=== PATIENT | female | born 1990 | race Caucasian/White ===

== ENCOUNTER 2017-02-13 21:05 | Observation (INO) | payer OTHER ==
[2017-02-13] MEDS ORDERED: SODIUM CHLORIDE 0.9% 1,000 ML IV STA (21:31)
--- NOTE | 2017-02-13 21:50 | ED ---
Abdominal Pain HPI <Fadi Nelson - Last Filed: 02/13/17 23:56> - General Source: patient, RN notes reviewed Mode of arrival: ambulatory Limitations: no limitations <Cedrick Castano - Last Filed: 02/13/17 23:58> - General Chief Complaint: Abdominal Pain Stated Complaint: Back pain Time Seen by Provider: 02/13/17 21:16 - History of Present Illness Initial Comments: 27-year-old female presents emergency Department chief complaint right lower quadrant, right flank pain. Patient states has been present last 3-4 days. Patient states that she occasionally gets some shooting pain from her lower abdomen to her back. Patient states she has a history of ovarian cysts and kidney stones. Patient denies any nausea vomiting diarrhea constipation. She states that she does have some dysuria and frequency. She denies any vaginal bleeding or vaginal discharge. Denies any chance . Patient states that she's had no prior abdominal surgeries. (Cedrick Castano) - Related Data Home Medications Medication Instructions Recorded Confirmed Cyclobenzaprine [Flexeril] 10 mg PO HS PRN 01/20/14 02/13/17 HYDROcodone/APAP 7.5-325MG [[place] 1 tab PO TID 01/20/14 02/13/17 7.5-325] Ibuprofen [Motrin] 800 mg PO TID PRN 01/20/14 02/13/17 metFORMIN HCL 1,000 mg PO BID 04/14/16 02/13/17 Albuterol Inhaler [Ventolin Hfa 2 puff INHALATION RT-Q6H PRN 07/18/16 02/13/17 Inhaler] Beclomethasone Dipropionate [Qvar 2 puff INHALATION RT-BID 07/18/16 02/13/17 80 mcg] Allergies Allergy/AdvReac Type Severity Reaction Status Date / Time doxycycline Allergy Rash/Hives Verified 02/13/17 21:15 Review of Systems ROS Other: All systems not noted in ROS Statement are negative. <Fadi Nelson - Last Filed: 02/13/17 23:56> ROS Other: All systems not noted in ROS Statement are negative. <Cedrick Castano - Last Filed: 02/13/17 23:58> ROS Statement: Those systems with pertinent positive or pertinent negative responses have been documented in the HPI. Past Medical History Past Medical History: Diabetes Mellitus, Hyperlipidemia Additional Past Medical History / Comment(s): back pain. headaches History of Any Multi-Drug Resistant Organisms: None Reported Past Surgical History: Tonsillectomy Additional Past Surgical History / Comment(s): laparoscopy x2 Past Psychological History: No Psychological Hx Reported Smoking Status: Current every day smoker Past Alcohol Use History: None Reported Past Drug Use History: Marijuana <Cedrick Castano Des - Last Filed: 02/13/17 23:58> General Exam Limitations: no limitations General appearance: alert, in no apparent distress Respiratory exam: Present: normal lung sounds bilaterally. Absent: respiratory distress, wheezes, rales, rhonchi, stridor Cardiovascular Exam: Present: regular rate, normal rhythm, normal heart sounds. Absent: systolic murmur, diastolic murmur, rubs, gallop, clicks GI/Abdominal exam: Present: soft, tenderness (Mild right-sided abdominal tenderness), normal bowel sounds. Absent: distended, guarding, rebound, rigid Back exam: Absent: CVA tenderness (R), CVA tenderness (L) Skin exam: Present: warm, dry, intact, normal color. Absent: rash <Cedrick Castano - Last Filed: 02/13/17 23:58> Medical Decision Making - Lab Data Result diagrams: 02/13/17 21:45 02/13/17 21:45 <Fadi Nelson - Last Filed: 02/13/17 23:56> - Lab Data Result diagrams: 02/13/17 21:45 02/13/17 21:45 <Cedrick Castano - Last Filed: 02/13/17 23:58> - Medical Decision Making Martin decision-making. Patient's white count 14.8. She has had lower abdominal discomfort more the right lower quadrant for 3 days and getting worse. Decreased appetite. Examination finds tenderness with palpation to the right lower quadrant mild rebound or referred pain. A CT showed the appendix mildly prominent normal localized inflammatory response. The radiologist reports is early appendicitis cannot be excluded. Is also trace of nonspecific pelvic free fluid. I discussed the case with on-call general surgeon Dr. Pabon patient be admitted her service kept nothing by mouth hydrated, pain medication as needed repeat CBC in the morning. Dr. Nelson (Fadi Nelson) - Lab Data Lab Results 02/13/17 02/13/17 02/13/17 Range/Units 21:33 21:33 21:45 WBC (3.8-10.6) k/uL RBC (3.80-5.40) m/uL Hgb (11.4-16.0) gm/dL Hct (34.0-46.0) % MCV (80.0-100.0) fL MCH (25.0-35.0) pg MCHC (31.0-37.0) g/dL RDW (11.5-15.5) % Plt Count (150-450) k/uL Neutrophils % % Lymphocytes % % Monocytes % % Eosinophils % % Basophils % % Neutrophils # (1.3-7.7) k/uL Lymphocytes # (1.0-4.8) k/uL Monocytes # (0-1.0) k/uL Eosinophils # (0-0.7) k/uL Basophils # (0-0.2) k/uL Sodium 140 (137-145) mmol/L Potassium 4.0 (3.5-5.1) mmol/L Chloride 104 (98-107) mmol/L Carbon Dioxide 24 (22-30) mmol/L Anion Gap 12 mmol/L BUN 10 (7-17) mg/dL Creatinine 0.82 (0.52-1.04) mg/dL Est GFR (MDRD) Af Amer >60 (>60 ml/min/1.73 sqM) Est GFR (MDRD) Non-Af >60 (>60 ml/min/1.73 sqM) Glucose 112 H (74-99) mg/dL Calcium 9.5 (8.4-10.2) mg/dL Total Bilirubin 0.3 (0.2-1.3) mg/dL AST 14 (14-36) U/L ALT 13 (9-52) U/L Alkaline Phosphatase 91 (38-126) U/L Total Protein 7.0 (6.3-8.2) g/dL Albumin 4.1 (3.5-5.0) g/dL Amylase <30 L (30-110) U/L Lipase 121 (23-300) U/L Urine Color Yellow Urine Appearance Cloudy H (Clear) Urine pH 6.0 (5.0-8.0) Ur Specific [place] 1.020 (1.001-1.035) Urine Protein Negative (Negative) Urine Glucose (UA) Negative (Negative) Urine Ketones Negative (Negative) Urine Blood Negative (Negative) Urine Nitrite Negative (Negative) Urine Bilirubin Negative (Negative) Urine Urobilinogen 2.0 (<2.0) mg/dL Ur Leukocyte Esterase Negative (Negative) Urine RBC 1 (0-5) /hpf Urine WBC 4 (0-5) /hpf Ur Squamous Epith Cells 3 (0-4) /hpf Urine Mucus Rare H (None) /hpf Urine HCG, Qual Not Detected (Not Detectd) 02/13/17 Range/Units 21:45 WBC 14.8 H (3.8-10.6) k/uL RBC 4.81 (3.80-5.40) m/uL Hgb 13.7 (11.4-16.0) gm/dL Hct 42.2 (34.0-46.0) % MCV 87.9 (80.0-100.0) fL MCH 28.5 (25.0-35.0) pg MCHC 32.4 (31.0-37.0) g/dL RDW 14.1 (11.5-15.5) % Plt Count 268 (150-450) k/uL Neutrophils % 63 % Lymphocytes % 30 % Monocytes % 3 % Eosinophils % 1 % Basophils % 1 % Neutrophils # 9.3 H (1.3-7.7) k/uL Lymphocytes # 4.4 (1.0-4.8) k/uL Monocytes # 0.4 (0-1.0) k/uL Eosinophils # 0.1 (0-0.7) k/uL Basophils # 0.1 (0-0.2) k/uL Sodium (137-145) mmol/L Potassium (3.5-5.1) mmol/L Chloride (98-107) mmol/L Carbon Dioxide (22-30) mmol/L Anion Gap mmol/L BUN (7-17) mg/dL Creatinine (0.52-1.04) mg/dL Est GFR (MDRD) Af Amer (>60 ml/min/1.73 sqM) Est GFR (MDRD) Non-Af (>60 ml/min/1.73 sqM) Glucose (74-99) mg/dL Calcium (8.4-10.2) mg/dL Total Bilirubin (0.2-1.3) mg/dL AST (14-36) U/L ALT (9-52) U/L Alkaline Phosphatase (38-126) U/L Total Protein (6.3-8.2) g/dL Albumin (3.5-5.0) g/dL Amylase (30-110) U/L Lipase (23-300) U/L Urine Color Urine Appearance (Clear) Urine pH (5.0-8.0) Ur Specific [place] (1.001-1.035) Urine Protein (Negative) Urine Glucose (UA) (Negative) Urine Ketones (Negative) Urine Blood (Negative) Urine Nitrite (Negative) Urine Bilirubin (Negative) Urine Urobilinogen (<2.0) mg/dL Ur Leukocyte Esterase (Negative) Urine RBC (0-5) /hpf Urine WBC (0-5) /hpf Ur Squamous Epith Cells (0-4) /hpf Urine Mucus (None) /hpf Urine HCG, Qual (Not Detectd) Disposition <Fadi Nelson - Last Filed: 02/13/17 23:56> Time of Disposition: 23:58 <Cedrick Castano - Last Filed: 02/13/17 23:58> Clinical Impression: Acute appendicitis Disposition: ADMITTED IP TO THIS HOSP Condition: Stable Referrals: Carol Vargas MD [Primary Care Provider] - 1-2 days
[2017-02-13 22:09] LABS: Basophils # (A) 0.1 k/uL (0-0.2); Basophils % (A) 1 %; CH 29.2; CHCM 33.4; Eosinophils # (A) 0.1 k/uL (0-0.7); Eosinophils % (A) 1 %; HCT 42.2 % (34.0-46.0); HGB 13.7 gm/dL (11.4-16.0); Luc # (Auto) 0.36; Luc % (Auto) 2; Lymphocytes # (A) 4.4 k/uL (1.0-4.8); Lymphocytes % (A) 30 %; MCH 28.5 pg (25.0-35.0); MCHC 32.4 g/dL (31.0-37.0); MCV 87.9 fL (80.0-100.0); Mean Platelet Volume 7.5; Monocytes # (A) 0.4 k/uL (0-1.0); Monocytes % (A) 3 %; Neutrophils # (A) 9.3 k/uL (1.3-7.7); Neutrophils % (A) 63 %; RBC 4.81 m/uL (3.80-5.40); RDW 14.1 % (11.5-15.5); WBC 14.8 k/uL (3.8-10.6); WBC (Perox) 15.09
[2017-02-13 22:12] LABS: Appearance,Urine Cloudy (Clear); Bilirubin,Urine Negative (Negative); Glucose,Urine (UA) Negative (Negative); Ketones,Urine Negative (Negative); Leukocyte Esterase,Urine Negative (Negative); Mucus,Urine Rare /hpf; Nitrite,Urine Negative (Negative); Particle Count 5148; Protein,Urine Negative (Negative); RBC,Urine 1 /hpf (0-5); Squamous Epithelial Cell,Urine 3 /hpf (0-4); UA Billing (MACRO vs. MICRO) MICRO; WBC,Urine 4 /hpf (0-5)
[2017-02-13 22:30] LABS: ALT 13 U/L (9-52); AST 14 U/L (14-36); Alkaline Phosphatase 91 U/L (38-126); Amylase <30 U/L (30-110); Anion Gap 12 mmol/L; Blood Urea Nitrogen 10 mg/dL (7-17); Calcium 9.5 mg/dL (8.4-10.2); Carbon Dioxide 24 mmol/L (22-30); Chloride 104 mmol/L (98-107); Glucose 112 mg/dL (74-99); Non-African American GFR(MDRD) >60 (>60 ml/min/1.73 sqM); Sodium 140 mmol/L (137-145); Total Bilirubin 0.3 mg/dL (0.2-1.3)
--- NOTE | 2017-02-13 22:44 | US ---
EXAM: US Pelvis, Transvaginal CLINICAL HISTORY: pain TECHNIQUE: Real-time transvaginal pelvic ultrasound (complete) with image documentation. Transvaginal imaging was used for better evaluation of the endometrium and adnexa. COMPARISON: CT 04/14/2016 FINDINGS: Uterus/cervix: The uterus is normal in size and measures 6.7 x 4.0 x 4. 1 cm. The endometrium is normal in caliber measuring 8 mm. Right ovary: The right ovary is normal in size with normal vascular flow and measures 2.7 x 3.8 x 1.8 cm. Avascular 9 mm hyperechoic focus of the right ovary is nonspecific, possibly a resolving/subacute hemorrhagic cyst. Left ovary: The left ovary is unremarkable in size and appearance with normal vascular flow and measures 2.1 x 3.0 x 2.2 cm. Free fluid: No free fluid. Bladder: The bladder is not seen. IMPRESSION: No acute findings.
[2017-02-13] MEDS ORDERED: RX INFO: IV CONTRAST WAS GIVEN 1 EACH MISC MISCELLANE PRN (22:47)
[2017-02-13] MEDS ORDERED: ONDANSETRON 4 MG/2 ML VIAL IVP STA (23:28)
--- NOTE | 2017-02-13 23:28 | CT ---
EXAM: CT Abdomen and Pelvis With Intravenous Contrast CLINICAL HISTORY: Reason: Pain TECHNIQUE: Axial computed tomography images of the abdomen and pelvis with intravenous contrast. CTDI is 0.25, 17.20, 15.21 mGy and DLP is 1300 mGy- cm. This CT exam was performed using one or more of the following dose reduction techniques: automated exposure control, adjustment of the mA and/or kV according to patient size, and/or use of iterative reconstruction technique. COMPARISON: US pelvis 02/13/2017, CT abdomen and pelvis 04/14/2016 FINDINGS: Lower thorax: Small hiatal hernia. ABDOMEN: Liver: Unremarkable. Gallbladder and bile ducts: Unremarkable. No calcified stones. Pancreas: Unremarkable. Spleen: Unremarkable. Adrenals: Unremarkable. Kidneys and ureters: Unremarkable. No solid mass. No hydronephrosis. Stomach and bowel: Unremarkable. Bowel is nondilated. Appendix: The tip of the appendix is mildly prominent measuring 8 mm in diameter. No periappendiceal inflammatory change, however early acute appendicitis is not excluded. PELVIS: Bladder: Unremarkable. Reproductive: Unremarkable as visualized. ABDOMEN and PELVIS: Intraperitoneal space: Trace nonspecific pelvic free fluid. No free or loculated fluid collection. Hepatomegaly. No focal hepatic lesions. Fluid. No free air or loculated fluid collection. Bones/joints: No acute osseous abnormality. Subcentimeter sclerotic focus in the left acetabulum is nonspecific, likely a bone island. Soft tissues: Unremarkable. Vasculature: Unremarkable. No abdominal aortic aneurysm. Lymph nodes: Unremarkable. No enlarged lymph nodes. IMPRESSION: The tip of the appendix is mildly prominent measuring 8 mm in diameter. No periappendiceal inflammatory change, however early acute appendicitis is not excluded. Clinical correlation is advised. Trace nonspecific pelvic free fluid.
[2017-02-13] MEDS ORDERED: NALOXONE 0.4 MG/ML 1 ML VIAL IV PRN (23:56)
[2017-02-13] MEDS ORDERED: HYDROmorphone 1 MG/ML 1 ML SYRINGE IV PRN (23:56)
[2017-02-13] MEDS ORDERED: ONDANSETRON 4 MG/2 ML VIAL IVP PRN (23:56)
[2017-02-14] MEDS: SODIUM CHLORIDE 0.9% 1,000 ML IV SCH ×2 (00:35→08:25)
[2017-02-14 00:39] VITALS: BMI 27.0
--- NOTE | 2017-02-14 06:22 | P.GSHP ---
History of Present Illness H&P Date: 02/14/17 Chief Complaint: Right lower quadrant pain 27 years old female presents with discomfort in the right lower quadrant which has been increasing in severity and she presented to ER last night with severe right lower quadrant pain 10 out of 10. No nausea or vomiting. Known diabetic for last 10 years on metformin. 2 prior abdominal surgeries for ovarian cysts no fever, chills or rigors. Last menstrual period was 12 days ago - Review of Systems Comment: All negative except stated in history of present illness Past Medical History Past Medical History: Diabetes Mellitus, Hyperlipidemia Additional Past Medical History / Comment(s): back pain. headaches History of Any Multi-Drug Resistant Organisms: None Reported Past Surgical History: Tonsillectomy Additional Past Surgical History / Comment(s): laparoscopy x2 Past Psychological History: No Psychological Hx Reported Smoking Status: Current every day smoker Past Alcohol Use History: None Reported Past Drug Use History: Marijuana - Past Family History Father Family Medical History: Cancer, Coronary Artery Disease (CAD), Diabetes Mellitus , Hyperlipidemia Mother Family Medical History: Cancer, Coronary Artery Disease (CAD), Diabetes Mellitus , Hyperlipidemia Medications and Allergies Home Medications Medication Instructions Recorded Confirmed Type Cyclobenzaprine [Flexeril] 10 mg PO HS PRN 01/20/14 02/13/17 History HYDROcodone/APAP 7.5-325MG [[place] 1 tab PO TID 01/20/14 02/13/17 History 7.5-325] Ibuprofen [Motrin] 800 mg PO TID PRN 01/20/14 02/13/17 History metFORMIN HCL 1,000 mg PO BID 04/14/16 02/13/17 History Albuterol Inhaler [Ventolin Hfa 2 puff INHALATION RT-Q6H PRN 07/18/16 02/13/17 History Inhaler] Beclomethasone Dipropionate [Qvar 2 puff INHALATION RT-BID 07/18/16 02/13/17 History 80 mcg] Allergies Allergy/AdvReac Type Severity Reaction Status Date / Time doxycycline Allergy Rash/Hives Verified 02/13/17 21:15 Surgical - Exam Vital Signs Temp Pulse Resp BP Pulse Ox 99.0 F 66 18 107/54 98 02/13/17 21:13 02/13/17 21:13 02/13/17 21:13 02/13/17 21:13 02/13/17 21:13 General: Patient is alert and oriented to time, place and person and cooperative with exam. HEENT: No pallor, no icterus Chest: Bilateral equal breath sounds present. Cardiovascular: Regular rate and rhythm. Abdomen: Right lower quadrant tenderness with localized tenderness Results - Labs 02/13/17 21:45 02/13/17 21:45 Abnormal Lab Results - Last 24 Hours (Table) 02/13/17 02/13/17 02/13/17 Range/Units 21:33 21:45 21:45 WBC 14.8 H (3.8-10.6) k/uL Neutrophils # 9.3 H (1.3-7.7) k/uL Glucose 112 H (74-99) mg/dL Amylase <30 L (30-110) U/L Urine Appearance Cloudy H (Clear) Urine Mucus Rare H (None) /hpf Diabetes panel 02/13/17 Range/Units 21:45 Sodium 140 (137-145) mmol/L Potassium 4.0 (3.5-5.1) mmol/L Chloride 104 (98-107) mmol/L Carbon Dioxide 24 (22-30) mmol/L BUN 10 (7-17) mg/dL Creatinine 0.82 (0.52-1.04) mg/dL Glucose 112 H (74-99) mg/dL Calcium 9.5 (8.4-10.2) mg/dL AST 14 (14-36) U/L ALT 13 (9-52) U/L Alkaline Phosphatase 91 (38-126) U/L Total Protein 7.0 (6.3-8.2) g/dL Albumin 4.1 (3.5-5.0) g/dL Calcium panel 02/13/17 Range/Units 21:45 Calcium 9.5 (8.4-10.2) mg/dL Albumin 4.1 (3.5-5.0) g/dL Pituitary panel 02/13/17 Range/Units 21:45 Sodium 140 (137-145) mmol/L Potassium 4.0 (3.5-5.1) mmol/L Chloride 104 (98-107) mmol/L Carbon Dioxide 24 (22-30) mmol/L BUN 10 (7-17) mg/dL Creatinine 0.82 (0.52-1.04) mg/dL Glucose 112 H (74-99) mg/dL Calcium 9.5 (8.4-10.2) mg/dL Adrenal panel 02/13/17 Range/Units 21:45 Sodium 140 (137-145) mmol/L Potassium 4.0 (3.5-5.1) mmol/L Chloride 104 (98-107) mmol/L Carbon Dioxide 24 (22-30) mmol/L BUN 10 (7-17) mg/dL Creatinine 0.82 (0.52-1.04) mg/dL Glucose 112 H (74-99) mg/dL Calcium 9.5 (8.4-10.2) mg/dL Total Bilirubin 0.3 (0.2-1.3) mg/dL AST 14 (14-36) U/L ALT 13 (9-52) U/L Alkaline Phosphatase 91 (38-126) U/L Total Protein 7.0 (6.3-8.2) g/dL Albumin 4.1 (3.5-5.0) g/dL - Imaging CT scan - abdomen: other (CT scan reviewed- early acute appendicitis) Assessment and Plan (1) Type 2 diabetes mellitus Status: Acute (2) Acute appendicitis Status: Acute Plan: 1. Laparoscopic appendectomy possible open 2. The risks, benefits and potential complications explained- bleeding, infection, possibility of converting to open 3. Unasyn [id number] 4. heparin 5000 Units SQ 5. Bilateral Scds
[2017-02-14 06:51] LABS: CH 28.3; CHCM 32.5; HCT 41.9 % (34.0-46.0); HDW 2.38; HGB 14.2 gm/dL (11.4-16.0); MCH 29.6 pg (25.0-35.0); MCHC 33.8 g/dL (31.0-37.0); MCV 87.6 fL (80.0-100.0); Mean Platelet Volume 6.9; RBC 4.78 m/uL (3.80-5.40); WBC 14.3 k/uL (3.8-10.6); WBC (Perox) 15.21
[2017-02-14 07:14] LABS: Add Differential Manual Differential
[2017-02-14 07:16] LABS: Manual Review Performed; Nucleated Red Blood Cells 0 /100 WBC (0-0); Total Cells Counted 100
[2017-02-14] MEDS: AMPICILLIN-SULBACTAM 3 GM in SODIUM CHLORIDE 0.9% 100 ML IVPB SCH ×2 (08:26→16:09)
[2017-02-14] MEDS: HEPARIN SODIUM,PORCINE 5,000 UNIT/ML 1 ML VIAL SQ SCH ×2 (08:26→16:10)
[2017-02-14] MEDS ORDERED: IV FLUID CONTINUATION 1,000 ML IV ONE (11:35)
[2017-02-14] MEDS ORDERED: SUCCINYLCHOLINE CHLORIDE 100 MG/5 ML SYR IV ONE (12:11)
[2017-02-14] MEDS ORDERED: MIDAZOLAM 2 MG/2 ML VIAL ONE (12:11)
[2017-02-14] MEDS ORDERED: GLYCOPYRROLATE 0.2 MG/ML 2 ML VIAL ONE (12:11)
[2017-02-14] MEDS ORDERED: LIDOCAINE 1% INJ 10MG/ML (20 ML MDV) ONE (12:11)
[2017-02-14] MEDS ORDERED: ROCURONIUM BROMIDE 10 MG/ML 10 ML VIAL IV ONE (12:11)
[2017-02-14] MEDS ORDERED: HYDROmorphone (PF) 1 MG/ML ONE (12:11)
[2017-02-14] MEDS ORDERED: fentaNYL (PF) 50 MCG/ML 2 ML AMP ONE (12:11)
[2017-02-14] MEDS ORDERED: ALBUTEROL INHALER 60 PUFF/8 GM INHALER INHALATION ONE (12:11)
[2017-02-14] MEDS ORDERED: NEOSTIGMINE 1 MG/ML 10 ML VIAL ONE (12:11)
[2017-02-14] MEDS ORDERED: PROPOFOL 10 MG/ML 20 ML VIAL IV ONE (12:11)
[2017-02-14] MEDS ORDERED: SODIUM CHLORIDE 0.9% 50 ML with ceFAZolin 2,000 MG IV ONE ×2 (12:32)
[2017-02-14] MEDS ORDERED: BUPIVACAIN-EPI 0.5%-1:200,000 30 ML VIAL SQ ONE (12:36)
[2017-02-14] MEDS ORDERED: LACTATED RINGERS 1,000 ML IV ONE (12:51)
[2017-02-14] MEDS ORDERED: HYDROcodone/APAP 5-325MG 1 EACH TAB PO PRN ×2 (12:54→12:58)
--- NOTE | 2017-02-14 12:58 | P.OP ---
Date of Procedure: 02/14/17 Preoperative Diagnosis: ACUTE APPENDICITIS Postoperative Diagnosis: Same Procedure(s) Performed: Laparoscopic appendectomy Implants: Anesthesia: JANENE local Surgeon: Sherrill Pabon Pathology: other Condition: stable Disposition: PACU Indications for Procedure: 27 years old female presents with right lower quadrant pain. Computed tomography scan suggestive of early appendicitis. Informed consent obtained and patient elected to undergo laparoscopic appendectomy possible open. Operative Findings: Acute appendicitis Both ovaries appeared normal Description of Procedure: The patient was brought to the operating room and placed in supine position with left arm tucked and a footboard was placed. General anesthesia with endotracheal intubation was performed as per anesthesia team. Chlorhexidine was used to prep the abdomen followed by application of sterile drapes. A timeout was performed to verify correct patient and correct procedure. Patient was confirmed to receive perioperative IV antibiotics, subcutaneous heparin for VTE prophylaxis and bilateral SCDs were placed. A 5 mm skin incision was made in the left anterior axillary line and a Veress needle was inserted into the peritoneal cavity and CO2 insufflated to a pressure of 15 mmHg. A 5 mm Optiview trocar was loaded on a 5 mm 30 laparoscope and peritoneal cavity was entered under direct vision. An additional 5 mm trocar was placed in the suprapubic location in midline and a 12 mm trocar in the supraumbilical location. Patient was placed in Trendelenburg with right side up. The appendix was identified. The tip appeared distended . The appendix was grasped using a laparoscopic Melany instrument. A suction irrigation device was used to gently dissecting appendix from the surrounding tissue. A window was made in the mesoappendix close to the cecal base using a [place] dissector. Laparoscopic Ligasure was used to divide the mesoappendix. No bleeding noted from the mesoappendiceal stump. The appendix was divided at its base, at the confluence of three tenia using Ethicon stapler 45 blue load. The staple line was intact without evidence of bleeding. The appendix was retrieved through the supraaumbilical port site. All the trocar sites were examined and no evidence of bleeding. The 12 mm trocar site was closed using three transfascial sutures of 0 Vicryl which were placed using a Quentin Lorenzo device. Local anesthetic was infiltrated along all the ports sites. The sponge, instrument and needle count were correct x2. CO2 gas was evacuated and trocars were removed. 4-0 Monocryl was used to close the skin incisions followed by Dermabond skin glue. Patient tolerated the procedure well and was taken to post anesthesia care unit in stable condition.
[2017-02-14] MEDS ORDERED: HYDROmorphone 1 MG/ML 1 ML SYRINGE IVP ONE ×2 (13:08→13:18)
[2017-02-14 14:34] VITALS: TEMP 97.8
--- NOTE | 2017-02-14 15:55 | P.DS ---
Providers Date of admission: 02/13/17 23:59 Expected date of discharge: 02/14/17 Attending physician: Sherrill Paobn Primary care physician: [facility] Course: 27-year-old female presented on the day of admission to the emergency room with a chief complaint of developing right lower quadrant pain which had increased in severity. Patient stated there was no nausea no vomiting no fever chills. Patient has a history of having 2 prior abdominal surgeries for ovarian cysts. Patient was seen in the emergency room had a CAT scan of the abdomen was suggestive of early appendicitis. Patient elected to undergo laparoscopic appendectomy for acute appendicitis. no Postop events. At the time of discharge patient was tolerating a diet was up ambulating in the berumen surgical incision sites benign no redness afebrile patient was felt to be appropriate to be discharged home Impression discharge diagnosis Present on admission right lower quadrant pain suspect due to early appendicitis CAT scan of the abdomen suggested of early appendicitis Laparoscopic appendectomy done on February 14 The above impression and plan of care have been discussed and directed by signing physician. Carina Dewitt nurse practitioner acting as scribe for signing physician. Patient Condition at Discharge: Stable Plan - Discharge Summary New Discharge Prescriptions: New Docusate [Colace] 100 mg PO BID #30 capsule HYDROcodone/APAP 5-325MG [[place] 5-325] 1 tab PO Q4HR PRN #20 tab PRN Reason: Pain No Action Ibuprofen [Motrin] 800 mg PO TID PRN PRN Reason: Pain HYDROcodone/APAP 7.5-325MG [[place] 7.5-325] 1 tab PO TID Cyclobenzaprine [Flexeril] 10 mg PO HS PRN PRN Reason: Back Pain metFORMIN HCL 1,000 mg PO BID Albuterol Inhaler [Ventolin Hfa Inhaler] 2 puff INHALATION RT-Q6H PRN PRN Reason: Shortness Of Breath Beclomethasone Dipropionate [Qvar 80 mcg] 2 puff INHALATION RT-BID Discharge Medication List Cyclobenzaprine [Flexeril] 10 mg PO HS PRN 01/20/14 [History] HYDROcodone/APAP 7.5-325MG [[place] 7.5-325] 1 tab PO TID 01/20/14 [History] Ibuprofen [Motrin] 800 mg PO TID PRN 06/02/14 [History] metFORMIN HCL 1,000 mg PO BID 04/14/16 [History] Albuterol Inhaler [Ventolin Hfa Inhaler] 2 puff INHALATION RT-Q6H PRN 07/18/16 [ History] Beclomethasone Dipropionate [Qvar 80 mcg] 2 puff INHALATION RT-BID 07/18/16 [ History] Docusate [Colace] 100 mg PO BID #30 capsule 02/14/17 [Rx] HYDROcodone/APAP 5-325MG [[place] 5-325] 1 tab PO Q4HR PRN #20 tab 02/14/17 [Rx] Follow up Appointment(s)/Referral(s): Sherrill Pabon MD [STAFF PHYSICIAN] - 02/28/17 Carol Vargas MD [Primary Care Provider] - 1-2 days Activity/Diet/Wound Care/Special Instructions: OK to shower . No soaking bath. No heavy lifting more than 10 lbs for 6 weeks post surgery. No driving while taking narcotics for pain. May use ice packs for local pain relief Take Motrin 600 mg po TID after meals if pain is not controlled Use incentive spirometry 10 times an hour while awake Discharge Disposition: HOME SELF-CARE
[2017-02-14 18:54] VITALS: BP 120/56; PULSE 51; RESP 20
== END 2017-02-14 19:00 | disposition home or self-care (01) ==
LOC: EC 21:05 → INTOOBSV 23:59 → UNDOADMIN 23:59 → 6PED 23:59
PROVIDERS: ADMIT Surgery; ATTEND Surgery
DX: K35.80 Unspecified acute appendicitis (principal); Z87.442 Personal history of urinary calculi; Z79.84 Long term (current) use of oral hypoglycemic drugs; Z79.899 Other long term (current) drug therapy; Z79.891 Long term (current) use of opiate analgesic; Z79.51 Long term (current) use of inhaled steroids; Z88.1 Allergy status to other antibiotic agents; E78.5 Hyperlipidemia, unspecified; E11.9 Type 2 diabetes mellitus without complications; F17.200 Nicotine dependence, unspecified, uncomplicated; Z83.3 Family history of diabetes mellitus; Z82.49 Family history of ischemic heart disease and other diseases of the circulatory system
CPT/HCPCS: 44970; 96361 ×2; 96365; 96372; 96375 ×2; 99285; 36415; 81025 ×2; 88304; 80053; 82150; 83690; 85025 ×2; 81001; 93975; 76830; 74177; G0378 ×2; J2250; J1644; J2710; J2405; J2001; J3010; J1170; Q9967; J0690; J0295; J0330; J2704

== ENCOUNTER 2017-11-01 16:12 | Emergency (ER) | payer OTHER ==
[2017-11-01 16:29] VITALS: TEMP 98.1
[2017-11-01] MEDS ORDERED: IPRATROPIUM-ALBUTEROL 3 ML NEB INHALATION STA (17:10)
--- NOTE | 2017-11-01 17:31 | ED ---
URI HPI - General Chief Complaint: Upper Respiratory Infection Stated Complaint: Sob/cough/aches Time Seen by Provider: 11/01/17 16:46 Source: patient, RN notes reviewed Mode of arrival: ambulatory Limitations: no limitations - History of Present Illness Initial Comments: 27-year-old female presents to the emergency department with chief complaint of cough. Patient states she has had a dry nonproductive cough for one week. Patient does have a history of asthma and is a smoker, denies history of COPD. She has tried DayQuil and NyQuil for this with minimal relief. Patient states she has also been nauseous but denies vomiting. Patient denies having a fever or chills. Patient states she has some congestion and a "scratchy" throat. Patient has no tenderness of the facial bones or drainage from the nares. Patient also denies experiencing body aches. Patient has not seen her primary care provider for this complaint. - Related Data Home Medications Medication Instructions Recorded Confirmed Cyclobenzaprine [Flexeril] 10 mg PO HS PRN 01/20/14 11/01/17 HYDROcodone/APAP 7.5-325MG [[place] 1 tab PO TID 01/20/14 11/01/17 7.5-325] Ibuprofen [Motrin] 800 mg PO TID PRN 01/20/14 11/01/17 Albuterol Inhaler [Ventolin Hfa 2 puff INHALATION RT-Q6H PRN 07/18/16 11/01/17 Inhaler] Beclomethasone Dipropionate [Qvar 2 puff INHALATION RT-BID 07/18/16 11/01/17 80 mcg] Atorvastatin [Lipitor] 20 mg PO HS 11/01/17 11/01/17 metFORMIN HCL [Glucophage] 500 mg PO BID 11/01/17 11/01/17 Previous Rx's Medication Instructions Recorded predniSONE 50 mg PO DAILY #5 tablet 11/01/17 Allergies Allergy/AdvReac Type Severity Reaction Status Date / Time doxycycline Allergy Rash/Hives Verified 11/01/17 16:36 Review of Systems ROS Statement: Those systems with pertinent positive or pertinent negative responses have been documented in the HPI. ROS Other: All systems not noted in ROS Statement are negative. Past Medical History Past Medical History: Diabetes Mellitus, Hyperlipidemia Additional Past Medical History / Comment(s): back pain. headaches History of Any Multi-Drug Resistant Organisms: None Reported Past Surgical History: Tonsillectomy Additional Past Surgical History / Comment(s): laparoscopy x2 Past Psychological History: No Psychological Hx Reported Smoking Status: Current every day smoker Past Alcohol Use History: None Reported Past Drug Use History: Marijuana - Past Family History Father Family Medical History: Cancer, Coronary Artery Disease (CAD), Diabetes Mellitus , Hyperlipidemia Mother Family Medical History: Cancer, Coronary Artery Disease (CAD), Diabetes Mellitus , Hyperlipidemia General Exam Limitations: no limitations General appearance: alert, in no apparent distress Head exam: Present: atraumatic, normocephalic, normal inspection Eye exam: Present: normal appearance, PERRL, EOMI. Absent: scleral icterus, conjunctival injection, periorbital swelling ENT exam: Present: normal exam, normal oropharynx, mucous membranes moist, other (Some drainage noted in the back of the throat) Neck exam: Present: normal inspection. Absent: tenderness, meningismus, lymphadenopathy Respiratory exam: Present: wheezes (Wheezing noted in the left lung). Absent: respiratory distress, rales, rhonchi, stridor, chest wall tenderness, decreased breath sounds, prolonged expiratory Cardiovascular Exam: Present: regular rate, normal rhythm, normal heart sounds. Absent: systolic murmur, diastolic murmur, rubs, gallop, clicks GI/Abdominal exam: Present: soft, normal bowel sounds. Absent: distended, tenderness, guarding, rebound, rigid Course Vital Signs 11/01/17 11/01/17 11/01/17 16:25 17:26 17:28 Temperature 98.1 F Pulse Rate 62 62 Respiratory 18 20 Rate Blood Pressure 109/64 O2 Sat by Pulse 99 Oximetry 11/01/17 17:37 Temperature Pulse Rate 62 Respiratory Rate Blood Pressure O2 Sat by Pulse Oximetry Medical Decision Making - Medical Decision Making 27-year-old female presents to the emergency department for cough. Patient's cough is nonproductive and dry. Patient states she has been a little short of breath compared to normal. Patient has a history of asthma and smokes. Patient has not had a fever or chills. She also has some congestion. X-ray showed no acute abnormalities. There is no reason to suspect a bacterial infection at this point as she does not have a fever and no evidence of pneumonia on x-ray. Patient will be sent home with a course of steroids. She also has an albuterol inhaler at home as well as Qvar. Patient will follow up with primary care provider. Patient will return to the emergency department if she experiences shortness of breath. - Lab Data Lab Results 11/01/17 11/01/17 Range/Units 17:50 18:04 Urine Color Colorless Urine Appearance Clear (Clear) Urine pH 6.5 (5.0-8.0) Ur Specific [place] 1.003 (1.001-1.035) Urine Protein Negative (Negative) Urine Glucose (UA) Negative (Negative) Urine Ketones Negative (Negative) Urine Blood Negative (Negative) Urine Nitrite Negative (Negative) Urine Bilirubin Negative (Negative) Urine Urobilinogen <2.0 (<2.0) mg/dL Ur Leukocyte Esterase Negative (Negative) Urine HCG, Qual Not Detected (Not Detectd) Disposition Clinical Impression: Cough Disposition: HOME SELF-CARE Condition: Good Instructions: Upper Respiratory Infection (ED) Additional Instructions: Please take steroids as directed. Please use albuterol as needed and take Qvar as directed. You may continue to take DayQuil and NyQuil for symptomatic relief. Please return to the emergency department if you notice shortness of breath. Otherwise please follow up with your primary care provider. Prescriptions: predniSONE 50 mg PO DAILY #5 tablet Referrals: Carol Vargas MD [Primary Care Provider] - 1-2 days Time of Disposition: 19:05
[2017-11-01 17:55] LABS: Appearance,Urine Clear (Clear); Bilirubin,Urine Negative (Negative); Blood,Urine Negative (Negative); Color,Urine Colorless; Glucose,Urine (UA) Negative (Negative); Ketones,Urine Negative (Negative); Leukocyte Esterase,Urine Negative (Negative); Nitrite,Urine Negative (Negative); PH, Urine 6.5 (5.0-8.0); Protein,Urine Negative (Negative); Specific Gravity,Urine 1.003 (1.001-1.035); Urobilinogen,Urine <2.0 mg/dL (<2.0)
--- NOTE | 2017-11-01 18:35 | XR ---
EXAMINATION TYPE: XR chest 2V DATE OF EXAM: 11/01/2017 COMPARISON: NONE HISTORY: Nausea TECHNIQUE: Frontal and lateral views of the chest are obtained. FINDINGS: Heart and mediastinum are normal. Lungs are clear. Diaphragm is normal. Bony thorax is int act. Pulmonary vascularity is normal. IMPRESSION: Normal chest.
[2017-11-01 19:24] VITALS: BP 107/54; PULSE 72; RESP 18
== END 2017-11-01 19:24 | disposition home or self-care (01) ==
LOC: EC 16:12
DX: R05 Cough (principal); R09.89 Other specified symptoms and signs involving the circulatory and respiratory systems; R11.0 Nausea; E11.9 Type 2 diabetes mellitus without complications; J45.909 Unspecified asthma, uncomplicated; E78.5 Hyperlipidemia, unspecified; F17.200 Nicotine dependence, unspecified, uncomplicated; Z79.51 Long term (current) use of inhaled steroids; Z79.84 Long term (current) use of oral hypoglycemic drugs; Z79.899 Other long term (current) drug therapy
CPT/HCPCS: 71046; 81003; 81025; 94640; 99284

== ENCOUNTER 2018-02-12 15:34 | Emergency (ER) | payer OTHER ==
[2018-02-12 16:18] VITALS: RESP 18
[2018-02-12 16:51] LABS: Basophils # (A) 0.1 k/uL (0-0.2); Basophils % (A) 1 %; Eosinophils # (A) 0.1 k/uL (0-0.7); Eosinophils % (A) 2 %; HCT 45.6 % (34.0-46.0); Lymphocytes # (A) 3.3 k/uL (1.0-4.8); Lymphocytes % (A) 36 %; MCH 27.8 pg (25.0-35.0); MCHC 32.9 g/dL (31.0-37.0); MCV 84.4 fL (80.0-100.0); Mean Platelet Volume 7.2; Monocytes # (A) 0.4 k/uL (0-1.0); Monocytes % (A) 4 %; Neutrophils # (A) 4.9 k/uL (1.3-7.7); Neutrophils % (A) 55 %; Platelet Count 313 k/uL (150-450); RDW 13.9 % (11.5-15.5); WBC 8.9 k/uL (3.8-10.6)
[2018-02-12 17:05] LABS: ALT 23 U/L (9-52); AST 22 U/L (14-36); Albumin 4.8 g/dL (3.5-5.0); Alkaline Phosphatase 92 U/L (38-126); Anion Gap 12 mmol/L; Blood Urea Nitrogen 10 mg/dL (7-17); Carbon Dioxide 24 mmol/L (22-30); Chloride 105 mmol/L (98-107); Glucose 90 mg/dL (74-99); Potassium 4.4 mmol/L (3.5-5.1); Sodium 141 mmol/L (137-145); Total Bilirubin 0.5 mg/dL (0.2-1.3)
[2018-02-12 17:10] LABS: Creatine Kinase 66 U/L (30-135)
[2018-02-12 17:22] LABS: Creatine Kinase MB 0.9 ng/mL (0.0-2.4); Troponin I <0.012 ng/mL (0.000-0.034)
[2018-02-12] MEDS ORDERED: IPRATROPIUM-ALBUTEROL 3 ML NEB INHALATION STA (18:16)
--- NOTE | 2018-02-12 18:21 | ED ---
General Adult HPI - General Chief complaint: Abdominal Pain Stated complaint: chest pain, cough, sob Time Seen by Provider: 02/12/18 18:02 Source: patient, RN notes reviewed Mode of arrival: ambulatory Limitations: no limitations - History of Present Illness Initial comments: This is a 28-year-old female who presents to the emergency department with chief complaint of chest pain, shortness of breath and cough. Patient reports a history of asthma. She states she is a current, every day smoker. She states for the past 3 days she has had a cough and intermittent shortness of breath. She states that she feels pain in her bilateral ribs that she describes as a squeezing sensation. She states she also experiences mid chest pain when she has episodes of coughing. Denies pleuritic chest pain. Denies fevers or chills, abdominal pain, nausea or vomiting, diarrhea or constipation, dizziness or headache. Patient denies any cardiac history. - Related Data Home Medications Medication Instructions Recorded Confirmed Cyclobenzaprine [Flexeril] 10 mg PO HS PRN 01/20/14 02/12/18 Ibuprofen [Motrin] 800 mg PO TID PRN 01/20/14 02/12/18 Albuterol Inhaler [Ventolin Hfa 2 puff INHALATION RT-Q6H PRN 07/18/16 02/12/18 Inhaler] Beclomethasone Dipropionate [Qvar 2 puff INHALATION RT-BID 07/18/16 02/12/18 80 mcg] Atorvastatin [Lipitor] 20 mg PO HS 11/01/17 02/12/18 metFORMIN HCL [Glucophage] 500 mg PO BID 11/01/17 02/12/18 Previous Rx's Medication Instructions Recorded predniSONE 20 mg PO BID #8 tab 02/12/18 Allergies Allergy/AdvReac Type Severity Reaction Status Date / Time doxycycline Allergy Rash/Hives Verified 02/12/18 18:09 Review of Systems ROS Statement: Those systems with pertinent positive or pertinent negative responses have been documented in the HPI. ROS Other: All systems not noted in ROS Statement are negative. Past Medical History Past Medical History: Diabetes Mellitus, Hyperlipidemia Additional Past Medical History / Comment(s): back pain. headaches History of Any Multi-Drug Resistant Organisms: None Reported Past Surgical History: Tonsillectomy Additional Past Surgical History / Comment(s): laparoscopy x2 Past Psychological History: Anxiety, Bipolar, Depression Smoking Status: Current every day smoker Past Alcohol Use History: None Reported Past Drug Use History: Marijuana - Past Family History Father Family Medical History: Cancer, Coronary Artery Disease (CAD), Diabetes Mellitus , Hyperlipidemia Mother Family Medical History: Cancer, Coronary Artery Disease (CAD), Diabetes Mellitus , Hyperlipidemia General Exam - General Exam Comments Initial Comments: General: Awake and alert, well-developed; in no apparent distress. HEENT: Head atraumatic, normocephalic. Pupils are equal, round and reactive to light. Extraocular movements intact. Oropharynx moist without erythema or exudate. Neck: Supple. Normal ROM. Cardiovascular: Regular rate and rhythm. No murmurs, rubs or gallops. Chest symmetrical. Respiratory: Normal respiratory effort with no use of accessory muscles. Diminished breath sounds throughout with diffuse rhonchi and wheezing. Musculoskeletal: Normal ROM, no tenderness bilateral upper and lower extremities. Ambulating normally. Skin: [place], warm and dry without rashes or lesions. Neurological: Alert and oriented x3. CN II-XII grossly intact. Speech is fluent and answers are appropriate. No focal neuro deficits. Psychiatric: Normal mood and affect. No overt signs of depression or anxiety noted. Limitations: no limitations Course Vital Signs 02/12/18 02/12/18 02/12/18 16:16 18:46 18:53 Temperature 98.1 F Pulse Rate 60 60 60 Respiratory 18 Rate Blood Pressure 109/66 O2 Sat by Pulse 98 Oximetry Medical Decision Making - Medical Decision Making This is a 28-year-old female with history of asthma who presents to the emergency department with chief complaint of shortness of breath, cough and chest pain. Patient is a current, every day smoker. Patient complains of chest pain when she has episodes of coughing. On physical examination, there are diminished lung sounds throughout with diffuse rhonchi and wheezing. CBC and CMP were unremarkable. Troponin is negative. EKG did reveal sinus bradycardia. No evidence of ST segment elevation or depression. PERC is negative. Chest x-ray revealed no acute abnormalities. Patient received a breathing treatment while in the emergency department and states that her breathing has improved. Lung sounds have improved. Vital signs are stable and patient is in no acute distress. She will be started on a short course of steroids for treatment of asthmatic bronchitis. She'll be discharged home at this time. She is in agreement with [employer] understanding. All questions answered. - Lab Data Result diagrams: 02/12/18 16:35 02/12/18 16:35 Lab Results 02/12/18 02/12/18 02/12/18 Range/Units 16:35 16:35 16:35 WBC 8.9 (3.8-10.6) k/uL RBC 5.40 (3.80-5.40) m/uL Hgb 15.0 (11.4-16.0) gm/dL Hct 45.6 (34.0-46.0) % MCV 84.4 (80.0-100.0) fL MCH 27.8 (25.0-35.0) pg MCHC 32.9 (31.0-37.0) g/dL RDW 13.9 (11.5-15.5) % Plt Count 313 (150-450) k/uL Neutrophils % 55 % Lymphocytes % 36 % Monocytes % 4 % Eosinophils % 2 % Basophils % 1 % Neutrophils # 4.9 (1.3-7.7) k/uL Lymphocytes # 3.3 (1.0-4.8) k/uL Monocytes # 0.4 (0-1.0) k/uL Eosinophils # 0.1 (0-0.7) k/uL Basophils # 0.1 (0-0.2) k/uL Sodium 141 (137-145) mmol/L Potassium 4.4 (3.5-5.1) mmol/L Chloride 105 (98-107) mmol/L Carbon Dioxide 24 (22-30) mmol/L Anion Gap 12 mmol/L BUN 10 (7-17) mg/dL Creatinine 0.70 (0.52-1.04) mg/dL Est GFR (CKD-EPI)AfAm >90 (>60 ml/min/1.73 sqM) Est GFR (CKD-EPI)NonAf >90 (>60 ml/min/1.73 sqM) Glucose 90 (74-99) mg/dL Plasma Lactic Acid [place] (0.7-2.0) mmol/L Calcium 10.0 (8.4-10.2) mg/dL Total Bilirubin 0.5 (0.2-1.3) mg/dL AST 22 (14-36) U/L ALT 23 (9-52) U/L Alkaline Phosphatase 92 (38-126) U/L Total Creatine Kinase 66 (30-135) U/L CK-MB (CK-2) 0.9 (0.0-2.4) ng/mL CK-MB (CK-2) Rel Index 1.4 Troponin I <0.012 (0.000-0.034) ng/mL Total Protein 8.0 (6.3-8.2) g/dL Albumin 4.8 (3.5-5.0) g/dL 02/12/18 Range/Units 16:35 WBC (3.8-10.6) k/uL RBC (3.80-5.40) m/uL Hgb (11.4-16.0) gm/dL Hct (34.0-46.0) % MCV (80.0-100.0) fL MCH (25.0-35.0) pg MCHC (31.0-37.0) g/dL RDW (11.5-15.5) % Plt Count (150-450) k/uL Neutrophils % % Lymphocytes % % Monocytes % % Eosinophils % % Basophils % % Neutrophils # (1.3-7.7) k/uL Lymphocytes # (1.0-4.8) k/uL Monocytes # (0-1.0) k/uL Eosinophils # (0-0.7) k/uL Basophils # (0-0.2) k/uL Sodium (137-145) mmol/L Potassium (3.5-5.1) mmol/L Chloride (98-107) mmol/L Carbon Dioxide (22-30) mmol/L Anion Gap mmol/L BUN (7-17) mg/dL Creatinine (0.52-1.04) mg/dL Est GFR (CKD-EPI)AfAm (>60 ml/min/1.73 sqM) Est GFR (CKD-EPI)NonAf (>60 ml/min/1.73 sqM) Glucose (74-99) mg/dL Plasma Lactic Acid [place] 0.6 L (0.7-2.0) mmol/L Calcium (8.4-10.2) mg/dL Total Bilirubin (0.2-1.3) mg/dL AST (14-36) U/L ALT (9-52) U/L Alkaline Phosphatase (38-126) U/L Total Creatine Kinase (30-135) U/L CK-MB (CK-2) (0.0-2.4) ng/mL CK-MB (CK-2) Rel Index Troponin I (0.000-0.034) ng/mL Total Protein (6.3-8.2) g/dL Albumin (3.5-5.0) g/dL - EKG Data EKG Comments: 16:52:38. Marked sinus bradycardia Ventricular rate 47 bpm, W[place] interval 156, QRS duration 94, QT/QTc 474/419 - Radiology Data Radiology results: report reviewed, image reviewed Interpreted by me: Chest x-ray impression: Normal chest. No change. Disposition Clinical Impression: Asthmatic bronchitis Disposition: HOME SELF-CARE Condition: Good Instructions: Asthma (ED), Acute Bronchitis (ED) Additional Instructions: Please take medications as prescribed. Please follow up with primary care provider within 1-2 days. Return to emergency department if symptoms should worsen or any concerns arise. Prescriptions: predniSONE 20 mg PO BID #8 tab Is patient prescribed a controlled substance at d/c from ED?: No Referrals: Carol Vargas MD [Primary Care Provider] - 1-2 days Time of Disposition: 20:13
--- NOTE | 2018-02-12 19:44 | XR ---
EXAMINATION TYPE: XR chest 2V DATE OF EXAM: 02/12/2018 COMPARISON: 11/01/2017 HISTORY: Chest pain TECHNIQUE: Frontal and lateral views of the chest are obtained. FINDINGS: Heart and mediastinum are normal. Lungs are clear. Diaphragm is normal. Bony thorax appear s normal. IMPRESSION: Normal chest. No change.
[2018-02-12] MEDS ORDERED: methylPREDNISolone SOD SUCCI 125 MG/2 ML VIAL IV STA (20:12)
[2018-02-12] MEDS ORDERED: methylPREDNISolone SOD SUCCI 125 MG/2 ML VIAL IM ONE (20:23)
[2018-02-12 21:21] VITALS: BP 110/70; PULSE 61; TEMP 98.6
== END 2018-02-12 21:19 | disposition home or self-care (01) ==
LOC: EC 15:34
DX: J45.909 Unspecified asthma, uncomplicated (principal); R00.1 Bradycardia, unspecified; E11.9 Type 2 diabetes mellitus without complications; E78.5 Hyperlipidemia, unspecified; F17.200 Nicotine dependence, unspecified, uncomplicated; Z79.51 Long term (current) use of inhaled steroids; Z79.84 Long term (current) use of oral hypoglycemic drugs; Z79.899 Other long term (current) drug therapy; Z88.1 Allergy status to other antibiotic agents
CPT/HCPCS: 36415; 94640; 93005; 80053; 82550; 82553; 83605; 84484; 85025; 87040; 71046; 99284; 96372; J2930

== ENCOUNTER 2018-08-04 16:21 | Emergency (ER) | payer OTHER ==
[2018-08-04] MEDS ORDERED: SODIUM CHLORIDE 0.9% 1,000 ML IV STA (16:55)
[2018-08-04] MEDS ORDERED: ONDANSETRON 4 MG/2 ML VIAL IVP STA (16:55)
[2018-08-04] MEDS ORDERED: IPRATROPIUM-ALBUTEROL 3 ML NEB INHALATION STA (16:56)
[2018-08-04] MEDS ORDERED: methylPREDNISolone SOD SUCCI 125 MG/2 ML VIAL IV STA (16:56)
--- NOTE | 2018-08-04 17:02 | ED ---
Abdominal Pain HPI - General Chief Complaint: Abdominal Pain Stated Complaint: vomiting/headache/congestion Time Seen by Provider: 08/04/18 16:42 Source: patient, RN notes reviewed, old records reviewed Mode of arrival: ambulatory Limitations: no limitations - History of Present Illness Initial Comments: Patient is a 28-year-old female who presents emergency department today with upper respiratory congestion for the past week. She reports that she's also had multiple episodes of vomiting. Patient states that she's had no fevers or chills. She reports history of sick contacts. She also complains a few episodes of diarrhea. She is a smoker and has a history of asthma. She reports she's had use her inhaler more frequently. Her cough has been nonproductive. Patient states that she has not had any [id number] medications at this time. She states with the vomiting she's been feeling dizzy and lightheaded. Her last episode of vomiting was earlier today. - Related Data Home Medications Medication Instructions Recorded Confirmed Cyclobenzaprine [Flexeril] 10 mg PO HS PRN 01/20/14 02/12/18 Ibuprofen [Motrin] 800 mg PO TID PRN 01/20/14 02/12/18 Albuterol Inhaler [Ventolin Hfa 2 puff INHALATION RT-Q6H PRN 07/18/16 02/12/18 Inhaler] Beclomethasone Dipropionate [Qvar 2 puff INHALATION RT-BID 07/18/16 02/12/18 80 mcg] Atorvastatin [Lipitor] 20 mg PO HS 11/01/17 02/12/18 metFORMIN HCL [Glucophage] 500 mg PO BID 11/01/17 02/12/18 Previous Rx's Medication Instructions Recorded predniSONE 20 mg PO BID #8 tab 02/12/18 Albuterol Inhaler [Ventolin Hfa 1 - 2 puff INHALATION RT-Q6H PRN 08/04/18 Inhaler] #1 inhaler Azithromycin [Zithromax Z-pack] 250 mg PO DIRECTED #6 tab 08/04/18 Ondansetron Odt [Zofran Odt] 4 mg PO Q8HR PRN #12 tab 08/04/18 methylPREDNISolone Dose Pack 4 mg PO DIRECTED #21 package 08/04/18 [Medrol Dose Pack] Allergies Allergy/AdvReac Type Severity Reaction Status Date / Time doxycycline Allergy Rash/Hives Verified 08/04/18 16:35 Review of Systems ROS Statement: Those systems with pertinent positive or pertinent negative responses have been documented in the HPI. ROS Other: All systems not noted in ROS Statement are negative. Past Medical History Past Medical History: Diabetes Mellitus, Hyperlipidemia Additional Past Medical History / Comment(s): back pain. headaches History of Any Multi-Drug Resistant Organisms: None Reported Past Surgical History: Tonsillectomy Additional Past Surgical History / Comment(s): laparoscopy x2 Past Psychological History: Anxiety, Bipolar, Depression Smoking Status: Current every day smoker Past Alcohol Use History: None Reported Past Drug Use History: Marijuana - Past Family History Father Family Medical History: Cancer, Coronary Artery Disease (CAD), Diabetes Mellitus , Hyperlipidemia Mother Family Medical History: Cancer, Coronary Artery Disease (CAD), Diabetes Mellitus , Hyperlipidemia General Exam - General Exam Comments Initial Comments: 28-year-old female. Limitations: no limitations General appearance: alert, in no apparent distress Head exam: Present: atraumatic, normocephalic, normal inspection Eye exam: Present: normal appearance, PERRL, EOMI. Absent: scleral icterus, conjunctival injection, periorbital swelling ENT exam: Present: normal exam, normal oropharynx, mucous membranes moist Neck exam: Present: normal inspection. Absent: tenderness, meningismus, lymphadenopathy Respiratory exam: Present: wheezes. Absent: normal lung sounds bilaterally, respiratory distress, rales, rhonchi, stridor Cardiovascular Exam: Present: regular rate, normal rhythm, normal heart sounds. Absent: systolic murmur, diastolic murmur, rubs, gallop, clicks GI/Abdominal exam: Present: soft, normal bowel sounds. Absent: distended, tenderness, guarding, rebound, rigid Extremities exam: Present: normal inspection, full ROM, normal capillary refill. Absent: tenderness, pedal edema, joint swelling, calf tenderness Back exam: Present: normal inspection Neurological exam: Present: alert, oriented X3, CN II-XII intact Psychiatric exam: Present: normal affect, normal mood Skin exam: Present: warm, dry, intact, normal color. Absent: rash Course Vital Signs 08/04/18 08/04/18 08/04/18 16:32 17:25 17:33 Temperature 98.5 F Pulse Rate 78 78 78 Respiratory 16 Rate Blood Pressure 122/68 O2 Sat by Pulse 98 Oximetry 12/15/18 17:34 Temperature 98.6 F Pulse Rate 62 Respiratory 18 Rate Blood Pressure 126/72 O2 Sat by Pulse 100 Oximetry Medical Decision Making - Medical Decision Making 28-year-old female with multiple complaints including vomiting, diarrhea and cough. Cough is nonproductive. She does have wheezing. She is a smoker. Discussed the importance of smoking cessation for greater than 5 minutes. Patient was given DuoNeb treatment IV Solu-Medrol and Zofran. Chest x-ray was reviewed and negative for any acute process. Patient at this time has no significant fever or chills. No abdominal tenderness. Patient plans to sinus congestion. Discussed I'll treat the Patient for her acute bronchitis with azithromycin steroids, inhaler cough syrup. I discussed close return parameters. All questions answered. - Lab Data Result diagrams: 08/04/18 17:20 08/04/18 17:20 Lab Results 08/04/18 08/04/18 08/04/18 Range/Units 17:20 17:20 17:40 WBC 9.5 (3.8-10.6) k/uL RBC 5.50 H (3.80-5.40) m/uL Hgb 14.7 (11.4-16.0) gm/dL Hct 45.6 (34.0-46.0) % MCV 82.9 (80.0-100.0) fL MCH 26.8 (25.0-35.0) pg MCHC 32.3 (31.0-37.0) g/dL RDW 13.9 (11.5-15.5) % Plt Count 250 (150-450) k/uL Neutrophils % 68 % Lymphocytes % 25 % Monocytes % 4 % Eosinophils % 2 % Basophils % 1 % Neutrophils # 6.4 (1.3-7.7) k/uL Lymphocytes # 2.4 (1.0-4.8) k/uL Monocytes # 0.3 (0-1.0) k/uL Eosinophils # 0.1 (0-0.7) k/uL Basophils # 0.1 (0-0.2) k/uL Sodium 141 (137-145) mmol/L Potassium 4.1 (3.5-5.1) mmol/L Chloride 106 (98-107) mmol/L Carbon Dioxide 24 (22-30) mmol/L Anion Gap 11 mmol/L BUN 9 (7-17) mg/dL Creatinine 0.65 (0.52-1.04) mg/dL Est GFR (CKD-EPI)AfAm >90 (>60 ml/min/1.73 sqM) Est GFR (CKD-EPI)NonAf >90 (>60 ml/min/1.73 sqM) Glucose 127 H (74-99) mg/dL Calcium 9.9 (8.4-10.2) mg/dL Total Bilirubin 0.5 (0.2-1.3) mg/dL AST 23 (14-36) U/L ALT 23 (9-52) U/L Alkaline Phosphatase 103 (38-126) U/L Total Protein 8.3 H (6.3-8.2) g/dL Albumin 4.5 (3.5-5.0) g/dL Urine Color Yellow Urine Appearance Cloudy H (Clear) Urine pH 6.0 (5.0-8.0) Ur Specific [place] 1.021 (1.001-1.035) Urine Protein Trace H (Negative) Urine Glucose (UA) Negative (Negative) Urine Ketones Trace H (Negative) Urine Blood Trace H (Negative) Urine Nitrite Negative (Negative) Urine Bilirubin Negative (Negative) Urine Urobilinogen <2.0 (<2.0) mg/dL Ur Leukocyte Esterase Negative (Negative) Urine RBC 9 H (0-5) /hpf Urine WBC 6 H (0-5) /hpf Ur Squamous Epith Cells 5 H (0-4) /hpf Urine Mucus Rare H (None) /hpf - Radiology Data Radiology results: report reviewed Normal chest x-ray noted. Disposition Clinical Impression: Bronchitis, Nausea and vomiting Disposition: HOME SELF-CARE Condition: Good Instructions: Acute Bronchitis (ED) Additional Instructions: Patient advised to follow-up with primary care physician. Return to emergency department if any alarming signs or symptoms occur. Prescriptions: Albuterol Inhaler [Ventolin Hfa Inhaler] 1 - 2 puff INHALATION RT-Q6H PRN #1 inhaler PRN Reason: Shortness Of Breath Azithromycin [Zithromax Z-pack] 250 mg PO DIRECTED #6 tab methylPREDNISolone Dose Pack [Medrol Dose Pack] 4 mg PO DIRECTED #21 package Ondansetron Odt [Zofran Odt] 4 mg PO Q8HR PRN #12 tab PRN Reason: Nausea Is patient prescribed a controlled substance at d/c from ED?: No Referrals: Carol Vargas MD [Primary Care Provider] - 1-2 days Time of Disposition: 18:34
[2018-08-04 17:45] LABS: Basophils # (A) 0.1 k/uL (0-0.2); Basophils % (A) 1 %; Eosinophils # (A) 0.1 k/uL (0-0.7); Eosinophils % (A) 2 %; HCT 45.6 % (34.0-46.0); HGB 14.7 gm/dL (11.4-16.0); Lymphocytes # (A) 2.4 k/uL (1.0-4.8); Lymphocytes % (A) 25 %; MCH 26.8 pg (25.0-35.0); MCHC 32.3 g/dL (31.0-37.0); MCV 82.9 fL (80.0-100.0); Monocytes # (A) 0.3 k/uL (0-1.0); Monocytes % (A) 4 %; Neutrophils # (A) 6.4 k/uL (1.3-7.7); Neutrophils % (A) 68 %; Platelet Count 250 k/uL (150-450); RDW 13.9 % (11.5-15.5); WBC 9.5 k/uL (3.8-10.6)
[2018-08-04 17:57] LABS: ALT 23 U/L (9-52); AST 23 U/L (14-36); Albumin 4.5 g/dL (3.5-5.0); Alkaline Phosphatase 103 U/L (38-126); Anion Gap 11 mmol/L; Blood Urea Nitrogen 9 mg/dL (7-17); Calcium 9.9 mg/dL (8.4-10.2); Carbon Dioxide 24 mmol/L (22-30); Chloride 106 mmol/L (98-107); Glucose 127 mg/dL (74-99); Potassium 4.1 mmol/L (3.5-5.1); Sodium 141 mmol/L (137-145); Total Bilirubin 0.5 mg/dL (0.2-1.3); Total Protein 8.3 g/dL (6.3-8.2)
--- NOTE | 2018-08-04 18:25 | XR ---
EXAMINATION TYPE: XR chest 2V DATE OF EXAM: 08/04/2018 COMPARISON: 02/12/2018 HISTORY: Chest pain TECHNIQUE: Frontal and lateral views of the chest are obtained. FINDINGS: Heart and mediastinum are normal. Lungs are clear. Diaphragm is normal. Bony thorax appear s normal. IMPRESSION: Normal chest. No change.
[2018-08-04 18:26] LABS: Appearance,Urine Cloudy (Clear); Bilirubin,Urine Negative (Negative); Blood,Urine Trace (Negative); Color,Urine Yellow; Glucose,Urine (UA) Negative (Negative); Ketones,Urine Trace (Negative); Leukocyte Esterase,Urine Negative (Negative); Mucus,Urine Rare /hpf; Nitrite,Urine Negative (Negative); Protein,Urine Trace (Negative); RBC,Urine 9 /hpf (0-5); Specific Gravity,Urine 1.021 (1.001-1.035); Squamous Epithelial Cell,Urine 5 /hpf (0-4); Urobilinogen,Urine <2.0 mg/dL (<2.0); WBC,Urine 6 /hpf (0-5)
[2018-08-04 19:04] VITALS: BP 115/65; PULSE 80; RESP 18; TEMP 98
== END 2018-08-04 19:04 | disposition home or self-care (01) ==
LOC: EC 16:21
DX: J20.9 Acute bronchitis, unspecified (principal); R11.2 Nausea with vomiting, unspecified; Z71.6 Tobacco abuse counseling; R19.7 Diarrhea, unspecified; R42 Dizziness and giddiness; J45.909 Unspecified asthma, uncomplicated; E78.5 Hyperlipidemia, unspecified; E11.9 Type 2 diabetes mellitus without complications; F17.200 Nicotine dependence, unspecified, uncomplicated; Z88.1 Allergy status to other antibiotic agents; Z79.51 Long term (current) use of inhaled steroids; Z79.84 Long term (current) use of oral hypoglycemic drugs; Z79.899 Other long term (current) drug therapy; Z90.89 Acquired absence of other organs; Z53.20 Procedure and treatment not carried out because of patient's decision for unspecified reasons
CPT/HCPCS: 36415; 94640; 80053; 85025; 81001; 71046; 99284; 96374; 96361; 99406; J2930

== ENCOUNTER 2019-02-02 17:55 | Emergency (ER) | payer OTHER ==
[2019-02-02 17:59] VITALS: BP 104/62; PULSE 70; RESP 18; TEMP 98.2
--- NOTE | 2019-02-02 18:12 | ED ---
Back Pain [facility] - General Chief Complaint: Back Pain/Injury Stated Complaint: Back pain/wants doctor's note Time Seen by Provider: 02/02/19 18:05 Source: patient Limitations: no limitations - History of Present Illness Initial Comments: 28-year-old female presenting today for chief complaint of bilateral low back pain. Patient states she was at work at [employer] one day prior when she twisted wrong she states that she felt bilateral low back pain. She states she feels as though she strained it. Patient states she left work and missed work today. Patient denies any numbness tingling loss sensation radiation the pain down her legs,. She states it is dull aching and is sharp when she rotates. Patient denies any direct trauma or falls to the back she has a fever chills night sweats IV drug use or history of cancer. Patient denies any midline pain. Denies muscle weakness of the lower extremities denies loss of bowel bladder control or urinary retention. Remaining review of systems negative upon arrival patient appears well ambulate without difficulty no signs of acute distress. Patient states that she usually takes Flexeril for muscle strains and does not have any of her current prescription. - Related Data Home Medications Medication Instructions Recorded Confirmed Cyclobenzaprine [Flexeril] 10 mg PO HS PRN 01/20/14 02/12/18 Ibuprofen [Motrin] 800 mg PO TID PRN 01/20/14 02/12/18 Albuterol Inhaler [Ventolin Hfa 2 puff INHALATION RT-Q6H PRN 07/18/16 02/12/18 Inhaler] Beclomethasone Dipropionate [Qvar 2 puff INHALATION RT-BID 07/18/16 02/12/18 80 mcg] Atorvastatin [Lipitor] 20 mg PO HS 11/01/17 02/12/18 metFORMIN HCL [Glucophage] 500 mg PO BID 11/01/17 02/12/18 Previous Rx's Medication Instructions Recorded predniSONE 20 mg PO BID #8 tab 02/12/18 Albuterol Inhaler [Ventolin Hfa 1 - 2 puff INHALATION RT-Q6H PRN 08/04/18 Inhaler] #1 inhaler Azithromycin [Zithromax Z-pack] 250 mg PO DIRECTED #6 tab 08/04/18 Ondansetron Odt [Zofran Odt] 4 mg PO Q8HR PRN #12 tab 08/04/18 methylPREDNISolone Dose Pack 4 mg PO DIRECTED #21 package 08/04/18 [Medrol Dose Pack] Ondansetron Odt [Zofran ODT] 4 mg PO Q8HR PRN #20 tab 11/18/18 Pantoprazole Sodium [Protonix] 20 mg PO Q24HR 20 Days #20 11/18/18 tablet. Cyclobenzaprine [Flexeril] 10 mg PO TID PRN 5 Days #15 tab 02/02/19 Allergies Allergy/AdvReac Type Severity Reaction Status Date / Time doxycycline Allergy Rash/Hives Verified 02/02/19 17:59 Review of Systems ROS Statement: Those systems with pertinent positive or pertinent negative responses have been documented in the HPI. ROS Other: All systems not noted in ROS Statement are negative. Past Medical History Past Medical History: Diabetes Mellitus, Hyperlipidemia Additional Past Medical History / Comment(s): back pain. headaches History of Any Multi-Drug Resistant Organisms: None Reported Past Surgical History: Appendectomy, Tonsillectomy Additional Past Surgical History / Comment(s): laparoscopy x2 Past Psychological History: Anxiety, Depression Smoking Status: Current every day smoker Past Alcohol Use History: Occasional Past Drug Use History: Marijuana - Past Family History Father Family Medical History: Cancer, Coronary Artery Disease (CAD), Diabetes Mellitus, Hyperlipidemia Mother Family Medical History: Cancer, Coronary Artery Disease (CAD), Diabetes Mellitus, Hyperlipidemia General Exam - General Exam Comments Initial Comments: General: The patient is awake and alert, in no distress, and does not appear acutely ill. Eye: Pupils are equal, round and reactive to light, extra-ocular movements are intact. No nystagmus. There is normal conjunctiva bilaterally. No signs of icterus. Ears, nose, mouth and throat: There are moist mucous membranes and no oral lesions. Neck: The neck is supple, there is no tenderness or JVD. Cardiovascular: There is a regular rate and rhythm. No murmur, rub or gallop is appreciated. Respiratory: Lungs are clear to auscultation, respirations are non-labored, breath sounds are equal. No wheezes, stridor, rales, or rhonchi. Musculoskeletal: Patient has no midline tenderness to palpation of the thoracic or lumbar spine. Patient does have paravertebral tenderness of the lumbar spine bilaterally. Normal ROM, no tenderness. Strength 5/5 of the LE equal b/l. Sensation intact of the LE equal b/l including saddle region. DP pulses equal bilaterally 2+. Neurological: A&O x 3. CN II-XII intact, There are no obvious motor or sensory deficits. Coordination appears grossly intact. Speech is normal. Skin: Skin is warm and dry and no rashes or lesions are noted. Psychiatric: Cooperative, appropriate mood & affect, normal judgment. Limitations: no limitations Course Vital Signs 02/02/19 17:57 Temperature 98.2 F Pulse Rate 70 Respiratory 18 Rate Blood Pressure 104/62 O2 Sat by Pulse 99 Oximetry Medical Decision Making - Medical Decision Making 28-year-old female presenting for back pain that occurred while twisting. No midline tenderness. Paravertebral. Patient denies any direct trauma. No alarming red flags on history or physical examination. At this time feel this is a lumbar strain. Symptomatic treatment was discussed with patient as well as return parameters. Patient be discharged with prescription for Flexeril. Patient was provided work note for lumbar rest. Patient discharged agreeable with care plan. Disposition Clinical Impression: Low back strain Disposition: HOME SELF-CARE Condition: Good Instructions (If sedation given, give patient instructions): Low Back Strain (ED), Lower Back Exercises (ED) Additional Instructions: Please use medication as discussed. Please follow-up with family doctor in the next 2 days. Please return to emergency room if the symptoms increase or worsen or for any other concerns, fever or chills night sweats or loss of bowel bladder control urinary retention. Prescriptions: Cyclobenzaprine [Flexeril] 10 mg PO TID PRN 5 Days #15 tab PRN Reason: Muscle Spasm Is patient prescribed a controlled substance at d/c from ED?: No Referrals: Carol Vargas MD [Primary Care Provider] - 1-2 days Time of Disposition: 18:11
== END 2019-02-02 18:20 | disposition home or self-care (01) ==
LOC: EC 17:55
DX: S39.012A Strain of muscle, fascia and tendon of lower back, initial encounter (principal); E11.9 Type 2 diabetes mellitus without complications; E78.5 Hyperlipidemia, unspecified; F17.200 Nicotine dependence, unspecified, uncomplicated; Z79.51 Long term (current) use of inhaled steroids; Z79.84 Long term (current) use of oral hypoglycemic drugs; Z79.899 Other long term (current) drug therapy; Z88.1 Allergy status to other antibiotic agents; X50.1XXA Overexertion from prolonged static or awkward postures, initial encounter; Y92.69 Other specified industrial and construction area as the place of occurrence of the external cause; Y99.0 Civilian activity done for income or pay
CPT/HCPCS: 99283

== ENCOUNTER 2019-03-15 17:30 | Emergency (ER) | payer OTHER ==
[2019-03-15 17:47] VITALS: BP 101/56; PULSE 70; RESP 18; TEMP 98.9
[2019-03-15] MEDS ORDERED: IBUPROFEN 800 MG TAB PO STA (18:18)
[2019-03-15] MEDS ORDERED: KETOROLAC 30 MG/ML 1 ML VIAL IM STA (18:23)
--- NOTE | 2019-03-15 18:59 | XR ---
PROCEDURE: XR finger LT - 3V DATE AND TIME: 03/15/2019 6:32 PM CLINICAL INDICATION: PHH; Pain TECHNIQUE: Department protocol COMPARISON: None FINDINGS: There is no fracture or malalignment. The soft tissues are unremarkable. IMPRESSION: NO ACUTE PROCESS.
--- NOTE | 2019-03-15 19:32 | ED ---
General Adult HPI - General Chief complaint: Extremity Injury, Upper Stated complaint: Finger injury Time Seen by Provider: 03/15/19 18:01 Source: patient Mode of arrival: ambulatory Limitations: no limitations - History of Present Illness Initial comments: Patient is a 29-year-old male presenting to emergency Department with right index finger pain. Patient reports "smashing" her right second digit on the window by accident. Patient reports throbbing pain at the distal phalange he reports mild ecchymosis in the area but denies edema or erythema. Patient reports limited range of motion due to pain. Patient reports the pain is alleviated with cold compress and exacerbated with any palpation or attempted movement. Patient denies taking medication to alleviate the symptoms. - Related Data Home Medications Medication Instructions Recorded Confirmed Cyclobenzaprine [Flexeril] 10 mg PO HS PRN 01/20/14 02/12/18 Ibuprofen [Motrin] 800 mg PO TID PRN 01/20/14 02/12/18 Albuterol Inhaler [Ventolin Hfa 2 puff INHALATION RT-Q6H PRN 07/18/16 02/12/18 Inhaler] Beclomethasone Dipropionate [Qvar 2 puff INHALATION RT-BID 07/18/16 02/12/18 80 mcg] Atorvastatin [Lipitor] 20 mg PO HS 11/01/17 02/12/18 metFORMIN HCL [Glucophage] 500 mg PO BID 11/01/17 02/12/18 Previous Rx's Medication Instructions Recorded predniSONE 20 mg PO BID #8 tab 02/12/18 Albuterol Inhaler [Ventolin Hfa 1 - 2 puff INHALATION RT-Q6H PRN 08/04/18 Inhaler] #1 inhaler Azithromycin [Zithromax Z-pack] 250 mg PO DIRECTED #6 tab 08/04/18 Ondansetron Odt [Zofran Odt] 4 mg PO Q8HR PRN #12 tab 08/04/18 methylPREDNISolone Dose Pack 4 mg PO DIRECTED #21 package 08/04/18 [Medrol Dose Pack] Ondansetron Odt [Zofran ODT] 4 mg PO Q8HR PRN #20 tab 11/18/18 Pantoprazole Sodium [Protonix] 20 mg PO Q24HR 20 Days #20 11/18/18 tablet. Cyclobenzaprine [Flexeril] 10 mg PO TID PRN 5 Days #15 tab 02/02/19 Allergies Allergy/AdvReac Type Severity Reaction Status Date / Time doxycycline Allergy Rash/Hives Verified 03/15/19 17:44 Review of Systems ROS Statement: Those systems with pertinent positive or pertinent negative responses have been documented in the HPI. ROS Other: All systems not noted in ROS Statement are negative. Past Medical History Past Medical History: Diabetes Mellitus, Hyperlipidemia Additional Past Medical History / Comment(s): back pain. headaches History of Any Multi-Drug Resistant Organisms: None Reported Past Surgical History: Appendectomy, Tonsillectomy Additional Past Surgical History / Comment(s): laparoscopy x2 Past Psychological History: Anxiety, Depression Smoking Status: Current every day smoker Past Alcohol Use History: Occasional Past Drug Use History: Marijuana - Past Family History Father Family Medical History: Cancer, Coronary Artery Disease (CAD), Diabetes Mellitus, Hyperlipidemia Mother Family Medical History: Cancer, Coronary Artery Disease (CAD), Diabetes Mellitus, Hyperlipidemia General Exam - General Exam Comments Initial Comments: General: Well-developed well-nourished distress HEENT: Normocephalic/atraumatic, PERLL, pharynx erythema, swallowing well, EAC no erythema, no exudates, TM clear, no cervical lymph nodes Neck: Supple, nontender, trachea midline Chest/Lungs: Normal respirations, no signs of respiratory distress clear to auscultation bilaterally no wheezes, rales, rhonchi Cardiac: Regular rate and rhythm, normal S1-S2, no murmurs rubs or gallops Abdomen/GI: Soft nontender, bowel sounds equal or quadrant x4, no guarding, no rebound no CVA tenderness Musculoskeletal: Tenderness along the distal phalanges of the right second digit, mild abrasion on the palmar aspect at the region of trauma, no disruption of the nail, no subungual hematoma Skin: [Warmth, no rashes or lesions, no cyanosis or diaphoresis] Neurologic: [AAO x 3, CN 2-12 intact, ] Psychiatric: [Mood and affect normal, judgment normal] Limitations: no limitations Course Vital Signs 03/15/19 17:44 Temperature 98.9 F Pulse Rate 70 Respiratory 18 Rate Blood Pressure 101/56 O2 Sat by Pulse 97 Oximetry Procedures - Orthopedic Splinting/Casting Injury #1 Side: right Upper Extremity Injury Location: finger (Second) Upper Extremity Immobilizer: finger (other) Medical Decision Making - Medical Decision Making Patient is a 29-year-old female presenting to emergency Department with right index finger pain. Patient was given Toradol for pain control. X-ray of the right index finger is negative for acute fracture or dislocations. At this point I could not rule out any tendon damage. Finger splint was laced on the right finger. He should advised to follow with orthopedics for further management. Strict return parameters were thoroughly discussed with patient who is understanding and agreeable. Case discussed with physician. Disposition Clinical Impression: Finger contusion Disposition: HOME SELF-CARE Condition: Stable Instructions (If sedation given, give patient instructions): Subungual Hematoma (ED) Additional Instructions: Please follow up with orthopedics. Alternate between Tylenol and ibuprofen for pain control. Apply ice compress to minimize pain and swelling. Please return to emergency Department if symptom worsen. Is patient prescribed a controlled substance at d/c from ED?: No Referrals: Carol Vargas MD [Primary Care Provider] - 1-2 days Leighton Camacho DO [Doctor of Osteopathic Medicine] - 1-2 days Time of Disposition: 19:32
== END 2019-03-15 19:54 | disposition home or self-care (01) ==
LOC: EC 17:30
DX: S60.021A Contusion of right index finger without damage to nail, initial encounter (principal); E11.9 Type 2 diabetes mellitus without complications; E78.5 Hyperlipidemia, unspecified; F17.200 Nicotine dependence, unspecified, uncomplicated; Z79.84 Long term (current) use of oral hypoglycemic drugs; Z79.899 Other long term (current) drug therapy; Z88.1 Allergy status to other antibiotic agents; W22.8XXA Striking against or struck by other objects, initial encounter; Y92.009 Unspecified place in unspecified non-institutional (private) residence as the place of occurrence of the external cause
CPT/HCPCS: 73140; 99283; 96372; J1885

== ENCOUNTER 2019-07-15 18:41 | Emergency (ER) | payer OTHER ==
[2019-07-15 18:52] VITALS: BP 101/49; PULSE 65; RESP 18; TEMP 98.3
--- NOTE | 2019-07-15 19:22 | XR ---
EXAMINATION TYPE: XR hand complete RT DATE OF EXAM: 07/15/2019 COMPARISON: NONE HISTORY: Hand and wrist pain TECHNIQUE: 3 views FINDINGS: Metacarpals are intact. I see no fracture nor dislocation. Joint spaces are normal. IMPRESSION: Negative right hand exam.
--- NOTE | 2019-07-15 19:23 | XR ---
EXAMINATION TYPE: XR wrist complete RT DATE OF EXAM: 07/15/2019 COMPARISON: NONE HISTORY: Pain TECHNIQUE: 4 views FINDINGS: Carpal bones are intact. I see no fracture nor dislocation. Joint spaces are normal. IMPRESSION: Negative right wrist exam.
--- NOTE | 2019-07-15 19:44 | ED ---
General Adult HPI - General Chief complaint: Extremity Injury, Upper Stated complaint: rt hand injury Time Seen by Provider: 07/15/19 19:01 Source: patient, RN notes reviewed, old records reviewed Mode of arrival: ambulatory Limitations: no limitations - History of Present Illness Initial comments: 29-year-old female patient presents CT complaint of right hand and wrist pain. Patient reports that she actually strike a heater with an open hand and now is having distal radius, proximal right thumb pain. This occurred approximately noon. Patient denies any other injury. Denies any other complaints. Denies any chance of being . Systemic: Pt denies fatigue, fever/chills, rash. Pt denies weakness, night sweats, weight loss. Neuro: Pt denies headache, visual disturbances, syncope or pre-syncope. HEENT: Pt denies ocular discharge or irritation, otalgia, rhinorrhea, pharyngitis or notable lymphadenopathy. Cardiopulmonary: Pt denies chest pain, SOB, heart palpitations, dyspnea on exertion. Abdominal/GI: Pt denies abdominal pain, n/v/d. : Pt denies dysuria, burning w/ urination, frequency/urgency. Denies new onset urinary or bowel incontinence. MSK: Pt denies myalgia, loss of strength or function in extremities. Neuro: Pt denies new onset weakness, paresthesias. - Related Data Home Medications Medication Instructions Recorded Confirmed Cyclobenzaprine [Flexeril] 10 mg PO HS PRN 01/20/14 02/12/18 Ibuprofen [Motrin] 800 mg PO TID PRN 01/20/14 02/12/18 Albuterol Inhaler [Ventolin Hfa 2 puff INHALATION RT-Q6H PRN 07/18/16 02/12/18 Inhaler] Beclomethasone Dipropionate [Qvar 2 puff INHALATION RT-BID 07/18/16 02/12/18 80 mcg] Atorvastatin [Lipitor] 20 mg PO HS 11/01/17 02/12/18 metFORMIN HCL [Glucophage] 500 mg PO BID 11/01/17 02/12/18 Previous Rx's Medication Instructions Recorded predniSONE 20 mg PO BID #8 tab 02/12/18 Albuterol Inhaler [Ventolin Hfa 1 - 2 puff INHALATION RT-Q6H PRN 08/04/18 Inhaler] #1 inhaler Azithromycin [Zithromax Z-pack] 250 mg PO DIRECTED #6 tab 08/04/18 Ondansetron Odt [Zofran Odt] 4 mg PO Q8HR PRN #12 tab 08/04/18 methylPREDNISolone Dose Pack 4 mg PO DIRECTED #21 package 08/04/18 [Medrol Dose Pack] Ondansetron Odt [Zofran ODT] 4 mg PO Q8HR PRN #20 tab 11/18/18 Pantoprazole Sodium [Protonix] 20 mg PO Q24HR 20 Days #20 11/18/18 tablet. Cyclobenzaprine [Flexeril] 10 mg PO TID PRN 5 Days #15 tab 02/02/19 Allergies Allergy/AdvReac Type Severity Reaction Status Date / Time doxycycline Allergy Rash/Hives Verified 07/15/19 18:52 Review of Systems ROS Statement: Those systems with pertinent positive or pertinent negative responses have been documented in the HPI. ROS Other: All systems not noted in ROS Statement are negative. Past Medical History Past Medical History: Diabetes Mellitus, Hyperlipidemia Additional Past Medical History / Comment(s): back pain. headaches History of Any Multi-Drug Resistant Organisms: None Reported Past Surgical History: Appendectomy, Tonsillectomy Additional Past Surgical History / Comment(s): laparoscopy x2 Past Psychological History: Anxiety, Depression Smoking Status: Current every day smoker Past Alcohol Use History: Occasional Past Drug Use History: Marijuana - Past Family History Father Family Medical History: Cancer, Coronary Artery Disease (CAD), Diabetes Mellitus, Hyperlipidemia Mother Family Medical History: Cancer, Coronary Artery Disease (CAD), Diabetes Mellitus, Hyperlipidemia General Exam - General Exam Comments Initial Comments: Constitutional: NAD, AOX3, Pt has pleasant affect. HEENT: NC/AT, trachea midline, neck supple, no lymphadenopathy. Posterior pharynx non erythematous, without exudates. External ears appear normal, without discharge. Mucous membranes moist. Eyes PERRLA, EOM intact. There is no scleral icterus. No pallor noted. Cardiopulmonary: RRR, no murmurs, rubs or gallops, no JVD noted. Lungs CTAB in anterior and posterior jo. No peripheral edema. Abdominal exam: Abdomen soft and non-distended. Abdomen non-tender to palpation in all 4 quadrants. Bowel sounds active in LLQ. No hepatosplenomegaly. No ecchymosis Neuro: CN II-XII grossly intact. No nuchal rigidity. No raccon eyes, no harris sign, no hemotympanum. No cervical spinal tenderness. MSK: right snuffbox tenderness noted. Distal radius mild tender. Full active range of motion of all digits. Proximal right thumb mildly tender. Patient placed in thumb spica splint. Neurovascularly intact after splint placement. No posterior calf tenderness bilaterally, homans sign negative bilaterally. Posterior tibialis and radial pulse +2 bilaterally. Sensation intact in upper and lower extremities. Full active ROM in upper and lower extremities, 5/5 stregnth. Limitations: no limitations Course Vital Signs 07/15/19 18:48 Temperature 98.3 F Pulse Rate 65 Respiratory 18 Rate Blood Pressure 101/49 O2 Sat by Pulse 99 Oximetry Medical Decision Making - Medical Decision Making 29-year-old female patient with the chief complaint of right wrist and hand pain after striking a heater with an open hand around noon. Patient also stable, afebrile. Denies any chance of being . Physical exam displayed distal radius, right snuffbox tenderness. Plain films are negative. Patient placed in thumb spica splint. Patient be discharged with follow-up with orthopedic follow-up for repeat films. Case discussed with Dr. Nolan. Disposition Clinical Impression: Wrist sprain Disposition: HOME SELF-CARE Condition: Stable Instructions (If sedation given, give patient instructions): Wrist Sprain (ED) Additional Instructions: Patient to adhere to previously discussed treatment plan and will take medication(s) as directed. Patient to follow up with PCP in 1-2 days. Patient to return to ED if symptoms do not improve. Follow up with PCP in 1-2 days. Follow up with orthopedic consult tomorrow. Return to ER if condition worsens. Is patient prescribed a controlled substance at d/c from ED?: No Referrals: Carol Vargas MD [Primary Care Provider] - 1-2 days Jordy Gray MD [STAFF PHYSICIAN] - 1-2 days
== END 2019-07-15 19:48 | disposition home or self-care (01) ==
LOC: EC 18:41
DX: S63.501A Unspecified sprain of right wrist, initial encounter (principal); F17.200 Nicotine dependence, unspecified, uncomplicated; Z88.1 Allergy status to other antibiotic agents; E11.9 Type 2 diabetes mellitus without complications; E78.5 Hyperlipidemia, unspecified; Z79.4 Long term (current) use of insulin; Z79.899 Other long term (current) drug therapy; W22.8XXA Striking against or struck by other objects, initial encounter; Y92.009 Unspecified place in unspecified non-institutional (private) residence as the place of occurrence of the external cause
CPT/HCPCS: 29125; 99284

== ENCOUNTER → 2019-07-29 | Outpatient (CLI) | payer OTHER ==
--- NOTE | 2019-07-29 13:51 | US ---
EXAMINATION TYPE: US transvaginal DATE OF EXAM: 07/29/2019 COMPARISON: Ultrasound of 2017 CLINICAL HISTORY: R10.2 PELVIC AND PERINEAL PAIN. Perineal pain. TECHNIQUE: Transvaginal (TV Date of LMP: 07/20/2019 EXAM MEASUREMENTS: Uterus: 7.8 x 3.0 x 4.3 cm Endometrial Stripe: .2 cm Right Ovary: 2.9 x 1.6 x 2.1 cm Left Ovary: 3.5 x 2.3 x 2.9 cm 1. Uterus: Anteverted wnl 2. Endometrium: wnl 3. Right Ovary: Follicles seen. 4. Left Ovary: Cystic area seen measuring 1.6 x 1.9 x 1.9 cm. Echogenic area seen measuring .9 x .8 x 1.1 cm. 5. Bilateral Adnexa: wnl 6. Posterior cul-de-sac: wnl IMPRESSION: 1. Simple appearing 1.9 cm left ovarian cyst. 2. Echogenic focus in the left ovary likely represents an involuting hemorrhagic cyst as this was not seen on the prior of 2016. Less likely this could represent a small dermoid. Follow-up ultrasound in 3 menstrual cycles could ensure resolution.
== END | disposition home or self-care (01) ==
LOC: RADUSWWP 12:07
PROVIDERS: ATTEND Obstetrics & Gynecology
DX: N83.202 Unspecified ovarian cyst, left side (principal)
CPT/HCPCS: 76830

== ENCOUNTER 2019-07-31 14:18 | Emergency (ER) | payer OTHER ==
[2019-07-31 14:23] VITALS: BP 110/71; PULSE 53; RESP 18; TEMP 97.4
[2019-07-31] MEDS ORDERED: KETOROLAC 60 MG/2 ML VIAL IM STA (14:35)
--- NOTE | 2019-07-31 14:38 | ED ---
Neck Injury/Pain HPI - General Chief Complaint: Neck Pain/Injury Stated Complaint: Neck pain 4 days Time Seen by Provider: 07/31/19 14:23 Mode of arrival: ambulatory Limitations: no limitations - History of Present Illness Initial Comments: Patient is a 29-year-old female presenting to the emergency Department with complaints of right-sided neck pain for the last 4 days. Patient states she woke up with a stiff neck and the pain has not been improving. They have tried heat and ice packs with no improvement in symptoms. Patient denies any trauma to the area. Patient denies previous history of surgeries or injuries. Patient states she does take muscle relaxers currently but states it is not improving her pain. Patient denies fever, chills. Patient has no other complaints at this time. Upon arrival to the ER, vital signs are stable. - Related Data Home Medications Medication Instructions Recorded Confirmed Cyclobenzaprine [Flexeril] 10 mg PO HS PRN 01/20/14 02/12/18 Ibuprofen [Motrin] 800 mg PO TID PRN 01/20/14 02/12/18 Albuterol Inhaler [Ventolin Hfa 2 puff INHALATION RT-Q6H PRN 07/18/16 02/12/18 Inhaler] Beclomethasone Dipropionate [Qvar 2 puff INHALATION RT-BID 07/18/16 02/12/18 80 mcg] Atorvastatin [Lipitor] 20 mg PO HS 11/01/17 02/12/18 metFORMIN HCL [Glucophage] 500 mg PO BID 11/01/17 02/12/18 Previous Rx's Medication Instructions Recorded predniSONE 20 mg PO BID #8 tab 02/12/18 Albuterol Inhaler [Ventolin Hfa 1 - 2 puff INHALATION RT-Q6H PRN 08/04/18 Inhaler] #1 inhaler Azithromycin [Zithromax Z-pack] 250 mg PO DIRECTED #6 tab 08/04/18 Ondansetron Odt [Zofran Odt] 4 mg PO Q8HR PRN #12 tab 08/04/18 methylPREDNISolone Dose Pack 4 mg PO DIRECTED #21 package 08/04/18 [Medrol Dose Pack] Ondansetron Odt [Zofran ODT] 4 mg PO Q8HR PRN #20 tab 11/18/18 Pantoprazole Sodium [Protonix] 20 mg PO Q24HR 20 Days #20 11/18/18 tablet. Cyclobenzaprine [Flexeril] 10 mg PO TID PRN 5 Days #15 tab 02/02/19 Allergies Allergy/AdvReac Type Severity Reaction Status Date / Time doxycycline Allergy Rash/Hives Verified 07/31/19 14:20 Review of Systems ROS Statement: Those systems with pertinent positive or pertinent negative responses have been documented in the HPI. ROS Other: All systems not noted in ROS Statement are negative. Past Medical History Past Medical History: Diabetes Mellitus, Hyperlipidemia Additional Past Medical History / Comment(s): back pain. headaches History of Any Multi-Drug Resistant Organisms: None Reported Past Surgical History: Appendectomy, Tonsillectomy Additional Past Surgical History / Comment(s): laparoscopy x2 Past Psychological History: Anxiety, Depression Smoking Status: Current every day smoker Past Alcohol Use History: Occasional Past Drug Use History: Marijuana - Past Family History Father Family Medical History: Cancer, Coronary Artery Disease (CAD), Diabetes Mellitus, Hyperlipidemia Mother Family Medical History: Cancer, Coronary Artery Disease (CAD), Diabetes Mellitus, Hyperlipidemia General Exam - General Exam Comments Initial Comments: GENERAL: Well-appearing, well-nourished and in no acute distress. HEAD: Atraumatic, normocephalic. EYES: Pupils equal round and reactive to light, extraocular movements intact, sclera anicteric, conjunctiva are normal. ENT: TMs normal, nares patent, oropharynx clear without exudates. Moist mucous membranes. NECK: Pain with palpation of the right cervical paraspinals as well as the right upper and mid trapezius muscle. Decreased cervical range of motion secondary to pain and stiffness. No midline tenderness. Supple without lymphadenopathy or JVD. LUNGS: Breath sounds clear to auscultation bilaterally and equal. No wheezes rales or rhonchi. HEART: Regular rate and rhythm without murmurs, rubs or gallops. EXTREMITIES: Slightly decreased range of motion of the right shoulder secondary to right upper trap pain and stiffness. There is no swelling or edema of the right shoulder joint. Patient is neurovascular intact. NEUROLOGICAL: Cranial nerves II through XII grossly intact. Normal speech, normal gait. PSYCH: Normal mood, normal affect. SKIN: Warm, Dry, normal turgor, no rashes or lesions noted. Limitations: no limitations Course Vital Signs 07/31/19 14:20 Temperature 97.4 F L Pulse Rate 53 L Respiratory 18 Rate Blood Pressure 110/71 O2 Sat by Pulse 98 Oximetry Medical Decision Making - Medical Decision Making Patient is a 29-year-old female presenting with right neck and right upper trap stiffness 4 days. No midline tenderness, no trauma. Patient is given 60 mg of Toradol. Patient will try heat and anti-inflammatories and gentle stretching to the area. Patient will follow up with PCP if symptoms persist after one week. Patient is stable for discharge at this time. Return parameters were di scussed with the patient she verbalized understanding. Case discussed with Dr. Doty. Disposition Clinical Impression: Strain of neck muscle Disposition: HOME SELF-CARE Condition: Stable Instructions (If sedation given, give patient instructions): Cervical Strain (ED) Additional Instructions: Please return to the Emergency Department if symptoms worsen or any other concerns. Continue with heat and gentle stretching to the area. Continue with muscle relaxer as needed as well as alternating between Aleve and Tylenol for pain. Follow-up with PCP if symptoms persist after one week. Is patient prescribed a controlled substance at d/c from ED?: No Referrals: Carol Vargas MD [Primary Care Provider] - 1-2 days
== END 2019-07-31 14:54 | disposition home or self-care (01) ==
LOC: EC 14:18
DX: S16.1XXA Strain of muscle, fascia and tendon at neck level, initial encounter (principal); F41.9 Anxiety disorder, unspecified; F32.9 Major depressive disorder, single episode, unspecified; E11.9 Type 2 diabetes mellitus without complications; E78.5 Hyperlipidemia, unspecified; F17.200 Nicotine dependence, unspecified, uncomplicated; Z79.84 Long term (current) use of oral hypoglycemic drugs; Z79.51 Long term (current) use of inhaled steroids; Z79.899 Other long term (current) drug therapy; Z88.1 Allergy status to other antibiotic agents; X50.9XXA Other and unspecified overexertion or strenuous movements or postures, initial encounter
CPT/HCPCS: 96372; 99283; J1885

== ENCOUNTER 2019-10-29 | Emergency (ER) | payer OTHER | END 2019-10-30 | disposition home or self-care (01) | CPT/HCPCS: 99284; 87081; 87430; J8540 ==

== ENCOUNTER 2021-01-10 12:31 | Emergency (ER) | payer OTHER ==
[2021-01-10 12:57] VITALS: BP 102/58; PULSE 62; RESP 20; TEMP 98.6
[2021-01-10] MEDS ORDERED: ORPHENADRINE 30 MG/ML 2 ML VIAL IM STA (13:28)
[2021-01-10] MEDS ORDERED: KETOROLAC 15 MG/ML 1 ML VIAL IM STA (13:28)
[2021-01-10] MEDS ORDERED: ACET/COD 300 MG/30 MG STARTER PACK 6 TAB BTL PO STA (13:28)
[2021-01-10] MEDS ORDERED: DEXAMETHASONE SOD PHOSPHATE 10 MG/ML 1 ML VIAL IM STA (13:30)
--- NOTE | 2021-01-10 13:32 | ED ---
Back Pain HPI - General Chief Complaint: Back Pain/Injury Stated Complaint: Back Pain Time Seen by Provider: 01/10/21 13:08 Source: patient, RN notes reviewed, old records reviewed Limitations: no limitations - History of Present Illness Initial Comments: 30-year-old female history of chronic back pain presents with worsening back pain with radiation down the right leg for the past day. Patient denies any skeletal and anesthesias. She denies any change in urination or bowel habits. Patient states that she has had a history of known degenerative disc disease. Patient reports no other complaints. - Related Data Home Medications Medication Instructions Recorded Confirmed Cyclobenzaprine [Flexeril] 10 mg PO HS PRN 01/20/14 02/12/18 Ibuprofen [Motrin] 800 mg PO TID PRN 01/20/14 02/12/18 Albuterol Inhaler (Mhu) [Ventolin 2 puff INHALATION RT-Q6H PRN 07/18/16 02/12/18 Hfa Inhaler] Beclomethasone Dipropionate [Qvar 2 puff INHALATION RT-BID 07/18/16 02/12/18 80 mcg] Atorvastatin [Lipitor] 20 mg PO HS 11/01/17 02/12/18 metFORMIN HCL [Glucophage] 500 mg PO BID 11/01/17 02/12/18 Previous Rx's Medication Instructions Recorded predniSONE [Deltasone] 20 mg PO BID #8 tab 02/12/18 Albuterol Inhaler (Mhu) [Ventolin 1 - 2 puff INHALATION RT-Q6H PRN 08/04/18 Hfa Inhaler (Mhu)] #1 inhaler Azithromycin [Zithromax Z-pack (6 250 mg PO DIRECTED #6 tab 08/04/18 tabs)] Ondansetron Odt [Zofran Odt] 4 mg PO Q8HR PRN #12 tab 08/04/18 methylPREDNISolone Dose Pack 4 mg PO DIRECTED #21 package 08/04/18 [Medrol Dose Pack] Ondansetron Odt [Zofran ODT] 4 mg PO Q8HR PRN #20 tab 11/18/18 Pantoprazole Sodium [Protonix] 20 mg PO Q24HR 20 Days #20 11/18/18 tablet. Cyclobenzaprine [Flexeril] 10 mg PO TID PRN 5 Days #15 tab 07/31/19 Acetaminophen-Codeine 300-30mg 1 tab PO Q6H PRN 3 Days #12 tablet 01/10/21 [Tylenol w/codeine #3] Ibuprofen [Motrin] 600 mg PO Q8HR PRN #20 tab 01/10/21 dexAMETHasone [Dexamethasone] 0.75 mg PO DAILY #12 tab 01/10/21 Allergies Allergy/AdvReac Type Severity Reaction Status Date / Time doxycycline Allergy Rash/Hives Verified 01/10/21 12:57 Review of Systems ROS Statement: Those systems with pertinent positive or pertinent negative responses have been documented in the HPI. ROS Other: All systems not noted in ROS Statement are negative. Past Medical History Past Medical History: Diabetes Mellitus, Hyperlipidemia Additional Past Medical History / Comment(s): back pain. headaches History of Any Multi-Drug Resistant Organisms: None Reported Past Surgical History: Appendectomy, Tonsillectomy Additional Past Surgical History / Comment(s): laparoscopy x2 Past Psychological History: Anxiety, Depression Smoking Status: Current every day smoker Past Alcohol Use History: Occasional Past Drug Use History: Marijuana - Past Family History Father Family Medical History: Cancer, Coronary Artery Disease (CAD), Diabetes Rosaura itus, Hyperlipidemia Mother Family Medical History: Cancer, Coronary Artery Disease (CAD), Diabetes Mellitus, Hyperlipidemia General Exam - General Exam Comments Initial Comments: 30-year-old female. No acute distress. Limitations: no limitations General appearance: alert, in no apparent distress Head exam: Present: atraumatic, normocephalic, normal inspection Eye exam: Present: normal appearance, PERRL, EOMI. Absent: scleral icterus, conjunctival injection, periorbital swelling ENT exam: Present: normal exam, mucous membranes moist Neck exam: Present: normal inspection. Absent: tenderness, meningismus, lymphadenopathy Respiratory exam: Present: normal lung sounds bilaterally. Absent: respiratory distress, wheezes, rales, rhonchi, stridor Cardiovascular Exam: Present: regular rate, normal rhythm, normal heart sounds. Absent: systolic murmur, diastolic murmur, rubs, gallop, clicks GI/Abdominal exam: Present: soft, normal bowel sounds. Absent: distended, tenderness, guarding, rebound, rigid Extremities exam: Present: normal inspection, full ROM, normal capillary refill. Absent: tenderness, pedal edema, joint swelling, calf tenderness Back exam: Present: normal inspection, tenderness (over lumbar spine to right sciatic notch ) Neurological exam: Present: alert, oriented X3, CN II-XII intact Psychiatric exam: Present: normal affect, normal mood Skin exam: Present: warm, dry, intact, normal color. Absent: rash Course Vital Signs 01/10/21 12:53 Temperature 98.6 F Pulse Rate 62 Respiratory 20 Rate Blood Pressure 102/58 O2 Sat by Pulse 99 Oximetry Medical Decision Making - Medical Decision Making Patient is a 30-year-old female presents emergency department today for acute exacerbation of chronic back pain. History of degenerative disc disease. Denies saddle anesthesia. She denies fall or trauma. This anxious and tenderness over the right lower back to the sciatic notch. She is given IM pain medication Tylenol 3. Discussed x-rays would not show any significant signs she has no red flag symptoms. Advised Patient follow up with a back specialist and possible MRI in the future. Patient agrees to treatment plan. Patient requested a work note. - Radiology Data Radiology results: report reviewed Disposition Clinical Impression: Acute exacerbation of chronic low back pain, Sciatic leg pain Disposition: HOME SELF-CARE Condition: Good Instructions (If sedation given, give patient instructions): Acute Low Back Pain (ED) Additional Instructions: Please use medication as discussed. Recommended follow-up with the orthopedic back specialist. Please follow up with family doctor if symptoms have not imp roved over the next two days. Please return to the emergency room if your symptoms increase or worsen or for any other concerns. Prescriptions: dexAMETHasone [Dexamethasone] 0.75 mg PO DAILY #12 tab Ibuprofen [Motrin] 600 mg PO Q8HR PRN #20 tab PRN Reason: Pain Acetaminophen-Codeine 300-30mg [Tylenol w/codeine #3] 1 tab PO Q6H PRN 3 Days #12 tablet PRN Reason: Pain Is patient prescribed a controlled substance at d/c from ED?: Yes When asked, does pt state using other controlled substances?: No If prescribed controlled substance>3 days was MAPS reviewed?: Prescribed <3 Days If opioid is for acute pain is fill amount 7 days or less?: Yes If Rx opioid, was Start Talking consent form obtained?: Yes Referrals: Craol Vargas MD [Primary Care Provider] - 1-2 days Travis Carver DO [Doctor of Osteopathic Medicine] - 1-2 days Time of Disposition: 13:28
== END 2021-01-10 13:49 | disposition home or self-care (01) ==
LOC: EC 12:31
DX: M54.41 Lumbago with sciatica, right side (principal); M79.604 Pain in right leg; E11.9 Type 2 diabetes mellitus without complications; F32.9 Major depressive disorder, single episode, unspecified; F12.90 Cannabis use, unspecified, uncomplicated; E78.5 Hyperlipidemia, unspecified; F17.200 Nicotine dependence, unspecified, uncomplicated; Z79.84 Long term (current) use of oral hypoglycemic drugs; Z90.89 Acquired absence of other organs; Z90.09 Acquired absence of other part of head and neck
CPT/HCPCS: 99283 ×2; 96372 ×4; J1100; J2360; J1885

== ENCOUNTER 2021-02-13 13:24 | Emergency (ER) | payer OTHER ==
[2021-02-13 13:32] VITALS: BP 104/66; PULSE 72; RESP 18; TEMP 98.2
--- NOTE | 2021-02-13 13:52 | ED ---
General Adult HPI - General Chief complaint: Extremity Injury, Lower Stated complaint: Rt Knee Pain Time Seen by Provider: 02/13/21 13:35 Source: patient, family, RN notes reviewed Mode of arrival: ambulatory Limitations: no limitations - History of Present Illness Initial comments: Patient is a pleasant 31-year-old female presenting to the emergency Department with complaints of right knee discomfort. Onset of symptoms was while walking up steps yesterday. Patient states symptoms did start fairly suddenly. Patient did not feel A snap or pop. Discomfort is mostly behind the right knee. There appeared to be some swelling yesterday. No weakness. No exact mechanism of injury or fall or direct trauma. No history of similar symptoms previously. Patient states she does bend a lot at work. - Related Data Home Medications Medication Instructions Recorded Confirmed Cyclobenzaprine [Flexeril] 10 mg PO HS PRN 01/20/02/12/18 Ibuprofen [Motrin] 800 mg PO TID PRN 01/20/14 02/12/18 Albuterol Inhaler (Mhu) [Ventolin 2 puff INHALATION RT-Q6H PRN 07/18/16 02/12/18 Hfa Inhaler] Beclomethasone Dipropionate [Qvar 2 puff INHALATION RT-BID 07/18/16 02/12/18 80 mcg] Atorvastatin [Lipitor] 20 mg PO HS 11/01/17 02/12/18 metFORMIN HCL [Glucophage] 500 mg PO BID 11/01/17 02/12/18 Previous Rx's Medication Instructions Recorded predniSONE [Deltasone] 20 mg PO BID #8 tab 02/12/18 Albuterol Inhaler (Mhu) [Ventolin 1 - 2 puff INHALATION RT-Q6H PRN 08/04/18 Hfa Inhaler (Mhu)] #1 inhaler Azithromycin [Zithromax Z-pack (6 250 mg PO DIRECTED #6 tab 08/04/18 tabs)] Ondansetron Odt [Zofran Odt] 4 mg PO Q8HR PRN #12 tab 08/04/18 methylPREDNISolone Dose Pack 4 mg PO DIRECTED #21 package 08/04/18 [Medrol Dose Pack] Ondansetron Odt [Zofran ODT] 4 mg PO Q8HR PRN #20 tab 11/18/18 Pantoprazole Sodium [Protonix] 20 mg PO Q24HR 20 Days #20 11/18/18 tablet. Cyclobenzaprine [Flexeril] 10 mg PO TID PRN 5 Days #15 tab 07/31/19 Acetaminophen-Codeine 300-30mg 1 tab PO Q6H PRN 3 Days #12 tablet 01/10/21 [Tylenol w/codeine #3] Ibuprofen [Motrin] 600 mg PO Q8HR PRN #20 tab 01/10/21 dexAMETHasone [Dexamethasone] 0.75 mg PO DAILY #12 tab 01/10/21 Ibuprofen [Motrin] 600 mg PO Q6HR PRN #20 tab 02/13/21 Allergies Allergy/AdvReac Type Severity Reaction Status Date / Time doxycycline Allergy Rash/Hives Verified 02/13/21 13:29 Review of Systems ROS Statement: Those systems with pertinent positive or pertinent negative responses have been documented in the HPI. ROS Other: All systems not noted in ROS Statement are negative. Constitutional: Denies: fever Eyes: Denies: eye pain ENT: Denies: ear pain Respiratory: Denies: cough Cardiovascular: Denies: chest pain Endocrine: Denies: fatigue Gastrointestinal: Denies: abdominal pain Genitourinary: Denies: dysuria Musculoskeletal: Reports: as per HPI Skin: Denies: rash Neurological: Denies: weakness Past Medical History Past Medical History: Diabetes Mellitus, Hyperlipidemia Additional Past Medical History / Comment(s): back pain. headaches History of Any Multi-Drug Resistant Organisms: None Reported Past Surgical History: Appendectomy, Tonsillectomy Additional Past Surgical History / Comment(s): laparoscopy x2 Past Psychological History: Anxiety, Depression Smoking Status: Current every day smoker Past Alcohol Use History: Occasional Past Drug Use History: Marijuana - Past Family History Father Family Medical History: Cancer, Coronary Artery Disease (CAD), Diabetes Mellitus, Hyperlipidemia Mother Family Medical History: Cancer, Coronary Artery Disease (CAD), Diabetes Mellitus, Hyperlipidemia General Exam Limitations: no limitations General appearance: alert, in no apparent distress Head exam: Present: normocephalic Eye exam: Present: normal appearance, PERRL Neck exam: Present: normal inspection Respiratory exam: Present: normal lung sounds bilaterally Cardiovascular Exam: Present: regular rate, normal rhythm Expanded Peripheral pulses: 2+: Posterior Tibialis (R), Posterior Tibialis (L) GI/Abdominal exam: Present: soft. Absent: tenderness Extremities exam: Present: other (Mild to moderate tenderness right popliteal fossa. No swelling. Mild tenderness medial meniscus region. Knee is otherwise stable. Distally the extremity is neurovascular intact.). Absent: pedal edema, calf tenderness Neurological exam: Present: alert. Absent: motor sensory deficit Psychiatric exam: Present: normal affect, normal mood Skin exam: Present: normal color Course Vital Signs 02/13/21 13:30 Temperature 98.2 F Pulse Rate 72 Respiratory 18 Rate Blood Pressure 104/66 O2 Sat by Pulse 98 Oximetry Medical Decision Making - Radiology Data Radiology results: report reviewed (Ultrasound negative for DVT), image reviewed (X-ray right knee reveals no acute process) Disposition Clinical Impression: Knee pain Disposition: HOME SELF-CARE Condition: Stable Instructions (If sedation given, give patient instructions): Knee Sprain (ED), Knee Pain (ED) Additional Instructions: Please follow-up with primary care physician in the next day or 2 for recheck. If symptoms continue consider orthopedic follow-up, number provided. Ice to affected area. Prescription for Motrin 600 has been sent to pharmacy. Return for fever, redness, increased pain or swelling, worsening symptoms or other concerns. Prescriptions: Ibuprofen [Motrin] 600 mg PO Q6HR PRN #20 tab PRN Reason: Pain Is patient prescribed a controlled substance at d/c from ED?: No Referrals: Carol Vargas MD [Primary Care Provider] - 1-2 days Travis Carver DO [Doctor of Osteopathic Medicine] - 1-2 days Time of Disposition: 14:51
--- NOTE | 2021-02-13 14:03 | XR ---
EXAMINATION TYPE: XR knee complete RT DATE OF EXAM: 02/13/2021 COMPARISON: NONE HISTORY: Pain TECHNIQUE: 3 views FINDINGS: I see no fracture nor dislocation. Joint spaces are normal. There is no sign of joint effus ion. IMPRESSION: Negative right knee exam. No fracture.
--- NOTE | 2021-02-13 14:31 | US ---
EXAMINATION TYPE: US venous doppler duplex LE RT DATE OF EXAM: 02/13/2021 2:17 PM COMPARISON: NONE CLINICAL HISTORY: pain. No redness. No swelling. No injury. Knee pain. No hx dvt. SIDE PERFORMED: Right TECHNIQUE: The lower extremity deep venous system is examined utilizing real time linear array sonog monica with graded compression, doppler sonography and color-flow sonography. VESSELS IMAGED: Common Femoral Vein Deep Femoral Vein Greater Saphenous Vein * Femoral Vein Popliteal Vein Small Saphenous Vein * Proximal Calf Veins (* superficial vessels) Right Leg: Negative for DVT IMPRESSION: No evidence of deep vein thrombosis in the right leg.
== END 2021-02-13 15:15 | disposition home or self-care (01) ==
LOC: EC 13:24
DX: M25.561 Pain in right knee (principal); E11.9 Type 2 diabetes mellitus without complications; E78.5 Hyperlipidemia, unspecified; F32.9 Major depressive disorder, single episode, unspecified; F41.9 Anxiety disorder, unspecified; F17.200 Nicotine dependence, unspecified, uncomplicated; F12.90 Cannabis use, unspecified, uncomplicated; Z79.1 Long term (current) use of non-steroidal anti-inflammatories (NSAID); Z79.51 Long term (current) use of inhaled steroids; Z79.52 Long term (current) use of systemic steroids; Z79.84 Long term (current) use of oral hypoglycemic drugs
CPT/HCPCS: 73562; 93971; 99284; L1830

== ENCOUNTER 2022-07-29 12:51 | Emergency (ER) | payer OTHER ==
[2022-07-29 13:03] VITALS: TEMP 97
--- NOTE | 2022-07-29 14:11 | XR ---
EXAMINATION TYPE: XR chest 2V DATE OF EXAM: 07/29/2022 COMPARISON: Chest x-ray August 04, 2018 HISTORY: Cough. TECHNIQUE: Frontal and lateral views of the chest are obtained. FINDINGS: There is no focal air space opacity, pleural effusion, or pneumothorax seen. The cardiac silhouette size is within normal limits. The osseous structures are intact. IMPRESSION: No suspicious acute pulmonary process.
[2022-07-29] MEDS ORDERED: IPRATROPIUM-ALBUTEROL 3 ML NEB INHALATION STA (14:46)
--- NOTE | 2022-07-29 15:17 | ED ---
General Adult HPI - General Chief complaint: Upper Respiratory Infection Stated complaint: cough Time Seen by Provider: 07/29/22 13:26 Source: patient, RN notes reviewed Mode of arrival: ambulatory Limitations: no limitations - History of Present Illness Initial comments: This a 32-year-old female presents emergency Department chief complaint of cough congestion. Patient states she has been sick for last 3-4 days. Patient complains of fever or chills, bodyaches. Patient does have underlying asthma. Patient states she's been using her inhaler. Patient states she has been noticing some wheezing. Patient denies any known sick contacts. Patient concerned she may have been around some with COVID-19. Patient has no GI symptoms including nausea, vomiting, diarrhea constipation - Related Data Home Medications Medication Instructions Recorded Confirmed Cyclobenzaprine [Flexeril] 10 mg PO HS PRN 01/20/14 02/12/18 Ibuprofen [Motrin] 800 mg PO TID PRN 01/20/14 02/12/18 Albuterol Inhaler [Ventolin Hfa 2 puff INHALATION RT-Q6H PRN 07/18/16 02/12/18 Inhaler] Beclomethasone Dipropionate [Qvar 2 puff INHALATION RT-BID 07/18/16 02/12/18 80 mcg] Atorvastatin [Lipitor] 20 mg PO HS 11/01/17 02/12/18 metFORMIN HCL [Glucophage] 500 mg PO BID 11/01/17 02/12/18 Previous Rx's Medication Instructions Recorded predniSONE [Deltasone] 20 mg PO BID #8 tab 02/12/18 Albuterol Inhaler [Ventolin Hfa 1 - 2 puff INHALATION RT-Q6H PRN 08/04/18 Inhaler] #1 inhaler Azithromycin [Zithromax Z-pack (6 250 mg PO DIRECTED #6 tab 08/04/18 tabs)] Ondansetron Odt [Zofran Odt] 4 mg PO Q8HR PRN #12 tab 08/04/18 methylPREDNISolone Dose Pack 4 mg PO DIRECTED #21 package 08/04/18 [Medrol Dose Pack] Ondansetron Odt [Zofran ODT] 4 mg PO Q8HR PRN #20 tab 11/18/18 Pantoprazole Sodium [Protonix] 20 mg PO Q24HR 20 Days #20 11/18/18 tablet.dr Cyclobenzaprine [Flexeril] 10 mg PO TID PRN 5 Days #15 tab 07/31/19 Acetaminophen-Codeine 300-30mg 1 tab PO Q6H PRN 3 Days #12 tablet 01/10/21 [Tylenol w/codeine #3] Ibuprofen [Motrin] 600 mg PO Q8HR PRN #20 tab 01/10/21 dexAMETHasone 0.75 mg PO DAILY #12 tab 01/10/21 Ibuprofen [Motrin] 600 mg PO Q6HR PRN #20 tab 02/13/21 Amoxic-Pot Clav 875-125Mg 1 tab PO Q12HR #20 tab 07/29/22 [Augmentin 875-125] Allergies Allergy/AdvReac Type Severity Reaction Status Date / Time doxycycline Allergy Rash/Hives Verified 02/13/21 13:29 Review of Systems ROS Statement: Those systems with pertinent positive or pertinent negative responses have been documented in the HPI. ROS Other: All systems not noted in ROS Statement are negative. Past Medical History Past Medical History: Diabetes Mellitus, Hyperlipidemia Additional Past Medical History / Comment(s): back pain. headaches History of Any Multi-Drug Resistant Organisms: None Reported Past Surgical History: Appendectomy, Tonsillectomy Additional Past Surgical History / Comment(s): laparoscopy x2 Past Psychological History: Anxiety, Depression Smoking Status: Current every day smoker Past Alcohol Use History: Occasional Past Drug Use History: Marijuana - Past Family History Father Family Medical History: Cancer, Coronary Artery Disease (CAD), Diabetes Mellitus, Hyperlipidemia Mother Family Medical History: Cancer, Coronary Artery Disease (CAD), Diabetes Mellitus, Hyperlipidemia General Exam Limitations: no limitations General appearance: alert, in no apparent distress Head exam: Present: atraumatic, normocephalic, normal inspection Eye exam: Present: normal appearance, PERRL, EOMI. Absent: scleral icterus, conjunctival injection, periorbital swelling ENT exam: Present: normal exam, normal oropharynx, mucous membranes moist Neck exam: Present: normal inspection, full ROM. Absent: tenderness, meningismus, lymphadenopathy Respiratory exam: Present: wheezes. Absent: respiratory distress, rales, rhonchi, stridor Cardiovascular Exam: Present: regular rate, normal rhythm, normal heart sounds. Absent: systolic murmur, diastolic murmur, rubs, gallop, clicks Neurological exam: Present: alert Course Vital Signs 07/29/22 13:00 Temperature 97 F L Pulse Rate 65 Respiratory 16 Rate Blood Pressure 110/45 O2 Sat by Pulse 99 Oximetry Medical Decision Making - Medical Decision Making Patient's chest x-ray interpreted and shows no evidence of pneumonia and no pneumothorax. Patient negative influenza A, B- COVID-19. Patient has asthmatic bronchitis patient was provided DuoNeb treatment. Patient continue inhaler, antibiotics as directed return parameters were discussed. - Lab Data Lab Results 07/29/22 07/29/22 Range/Units 13:54 13:54 Coronavirus (PCR) Not Detected (Not Detectd) Influenza Type A RNA Not Detected (Not Detectd) Influenza Type B (PCR) Not Detected (Not Detectd) Disposition Clinical Impression: Asthmatic bronchitis Disposition: HOME SELF-CARE Condition: Stable Instructions (If sedation given, give patient instructions): Upper Respiratory Infection (ED) Additional Instructions: Please return to the Emergency Department if symptoms worsen or any other concerns. Prescriptions: Amoxic-Pot Clav 875-125Mg [Augmentin 875-125] 1 tab PO Q12HR #20 tab Is patient prescribed a controlled substance at d/c from ED?: No Referrals: Carol Vargas MD [Primary Care Provider] - 1-2 days Time of Disposition: 15:17
[2022-07-29 15:35] VITALS: RESP 18
[2022-07-29 15:48] VITALS: BP 112/78; PULSE 90
== END 2022-07-29 15:48 | disposition home or self-care (01) ==
LOC: EC 12:51
DX: J45.909 Unspecified asthma, uncomplicated (principal); E11.9 Type 2 diabetes mellitus without complications; E78.5 Hyperlipidemia, unspecified; F41.9 Anxiety disorder, unspecified; F32.A Depression, unspecified; F17.200 Nicotine dependence, unspecified, uncomplicated; Z88.1 Allergy status to other antibiotic agents; Z79.84 Long term (current) use of oral hypoglycemic drugs; Z79.899 Other long term (current) drug therapy; Z20.822 Contact with and (suspected) exposure to COVID-19
CPT/HCPCS: 71046; 87502; 87635; 94640; 99283

== ENCOUNTER → 2022-11-09 | Outpatient (CLI) | payer OTHER ==
--- NOTE | 2022-11-09 08:10 | US ---
EXAMINATION TYPE: US liver DATE OF EXAM: 11/09/2022 COMPARISON: NONE CLINICAL HISTORY: B18.2 CHRONIC VIRAL HEPATITIS. TECHNIQUE: Multiple sonographic images of the right upper quadrant are obtained. FINDINGS: EXAM MEASUREMENTS: Liver Length: 16.3 cm Gallbladder Wall: 0.14 cm CBD: 0.23 cm Right Kidney: 10.9 X 4.0 X 4.2 cm Pancreas: wnl Liver: Slightly echogenic Gallbladder: wnl Evidence for sonographic Gray's sign: No CBD: wnl Right Kidney: wnl IMPRESSION: Correlate for borderline to mild hepatic steatosis.
== END | disposition home or self-care (01) ==
LOC: RADUSWWP 06:57
PROVIDERS: ATTEND Internal Medicine Gastroenterology
DX: B18.2 Chronic viral hepatitis C (principal)
CPT/HCPCS: 76705

== ENCOUNTER → 2023-02-14 | Outpatient (CLI) | payer OTHER | LOC: CPPFTMAIN 13:06 | PROVIDERS: ATTEND Family Medicine | DX: J45.20 Mild intermittent asthma, uncomplicated (principal); Z88.6 Allergy status to analgesic agent; F17.200 Nicotine dependence, unspecified, uncomplicated | CPT/HCPCS: 94060; 94726; 94729 ==

== ENCOUNTER → 2023-02-16 | Outpatient (CLI) | payer OTHER ==
--- NOTE | 2023-02-16 09:17 | MM ---
Reason for Exam: Clinical finding. Baseline mammogram. Patient History: Menarche at age 9. Patient has no children. Premenopausal. Maternal aunt had breast cancer under age 50. Last menstrual period: 02/01/2023 Risk Values: Arianna 5 year model risk: 0.4%. NCI Lifetime model risk: 12.4%. Prior Study Comparison: 02/28/2014 Right Diagnostic Ultrasound, [facility]. Patient's first Mammogram. Tissue Density: There are scattered fibroglandular densities. Findings: Analyzed By CAD. No architectural distortion, suspicious group of calcifications, or mass within either breast. Reported milky discharge from the left breast. Overall Assessment: Incomplete: need additional imaging evaluation, BI-RAD 0 Management: Diagnostic Breast Ultrasound of the left breast. A clinical breast exam by your physician is recommended on an annual basis and results should be correlated with mammographic findings. This exam should not preclude additional follow-up of suspicious palpable abnormalities. Results were given to the patient verbally at the time of exam. Note on Arianna scores and lifetime risk: 1. A Arianna score greater than 3% is considered moderate risk. If this is the case, consider specialist referral to assess eligibility for a risk reducing agent. If overall lifetime risk for the development of breast cancer is 20% or higher, the patient may qualify for future screening with alternating mammogram and breast MRI. Electronically signed and approved by: Adalid Goldman D.O.
--- NOTE | 2023-02-16 09:54 | USB ---
Reason for Exam: Clinical finding. Patient History: Menarche at age 9. Patient has no children. Premenopausal. Maternal aunt had breast cancer under age 50. Risk Values: Arianna 5 year model risk: 0.4%. NCI Lifetime model risk: 12.4%. Technique: Method: Whole Breast Handheld. Findings: The whole breast of the left breast, the axilla of the left breast and the retroareolar of the left breast were scanned. A complete US of all four quadrants of the left breast and retro-areolar region were reviewed. No solid or cystic masses are identified.. Overall Assessment: Negative, BI-RAD 1 Management: Screening Mammogram of both breasts at age 38. Clinical management for milky breast discharge. A clinical breast exam by your physician is recommended on an annual basis and results should be correlated with mammographic findings. This exam should not preclude additional follow-up of suspicious palpable abnormalities. Results were given to the patient verbally at the time of exam. Electronically signed and approved by: Adalid Goldman D.O.
== END | disposition home or self-care (01) ==
LOC: RADMAMWWP 08:47
PROVIDERS: ATTEND Family Medicine
DX: R92.1 Mammographic calcification found on diagnostic imaging of breast (principal); N64.52 Nipple discharge; R94.6 Abnormal results of thyroid function studies; Z80.3 Family history of malignant neoplasm of breast
CPT/HCPCS: 77066; 76641; G0279; 77062

== ENCOUNTER → 2023-03-01 | Outpatient (CLI) | payer OTHER ==
--- NOTE | 2023-03-02 12:50 | US ---
EXAMINATION TYPE: US thyroid st tissue head/neck DATE OF EXAM: 03/01/2023 COMPARISON: NONE CLINICAL INDICATION: Female, 33 years old with history of R94.6 ABNORMAL RESULTS OF THYROID FUNCTION STUDIES; GLAND SIZE: Right Lobe: 4.7x1.8x1.6cm Overall Parenchyma: homogenous Left Lobe: 4.4x1.4x1.3cm Overall Parenchyma: homogeneous Isthmus Thickness: 0.3 cm There may be slight parenchymal hyperemia. NODULES RIGHT: # of nodules measured on right: 0 LEFT: # of nodules measured on left: 0 ISTHMUS: # of nodules measured in the isthmus: 0 Bilateral neck scanned, no evidence of lymphadenopathy. IMPRESSION: There may be slight parenchymal hyperemia that could reflect diffuse thyroiditis. However, there is o therwise a fairly homogeneous appearance without discrete nodule.
== END | disposition home or self-care (01) ==
LOC: RADUSWWP 16:49
PROVIDERS: ATTEND Family Medicine
DX: R94.6 Abnormal results of thyroid function studies (principal)
CPT/HCPCS: 76536

== ENCOUNTER 2023-05-01 11:40 | Emergency (ER) | payer OTHER ==
[2023-05-01 12:02] VITALS: RESP 16
[2023-05-01] MEDS ORDERED: HYDROcodone/APAP 5-325MG 1 EACH TAB PO STA (13:07)
[2023-05-01] MEDS ORDERED: CYCLOBENZAPRINE 5 MG TAB PO STA (13:08)
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
--- NOTE | 2023-05-01 13:41 | XR ---
EXAMINATION TYPE: XR lumbar spine 2 or 3V DATE OF EXAM: 05/01/2023 CLINICAL HISTORY: pain TECHNIQUE: Three views of the lumbar spine are submitted. COMPARISON: None. FINDINGS: There are 5 lumbar type vertebral bodies identified. The lumbar spine shows satisfactory alignment w ithout evidence of acute fracture or dislocation. Vertebral body heights are within normal limits. Disc spaces are within normal limits. The overlying soft tissue appears unremarkable. IMPRESSION: No acute fracture or dislocation is seen in the lumbar spine. ICD 10 NO FRACTURE, INITIAL EVALUATION
[2023-05-01] MEDS ORDERED: KETOROLAC 15 MG/ML 1 ML VIAL IM STA (15:34)
[2023-05-01] MEDS ORDERED: MORPHINE SULFATE 4 MG/ML SYRINGE IM STA (15:34)
[2023-05-01 16:53] VITALS: BP 123/79; PULSE 72; TEMP 97.5
== END 2023-05-01 16:53 | disposition home or self-care (01) ==
LOC: EC 11:40
DX: S39.012A Strain of muscle, fascia and tendon of lower back, initial encounter (principal); E11.9 Type 2 diabetes mellitus without complications; E78.5 Hyperlipidemia, unspecified; F17.200 Nicotine dependence, unspecified, uncomplicated; F12.90 Cannabis use, unspecified, uncomplicated; Z79.84 Long term (current) use of oral hypoglycemic drugs; Z79.899 Other long term (current) drug therapy; Z88.8 Allergy status to other drugs, medicaments and biological substances; Z86.59 Personal history of other mental and behavioral disorders; X50.0XXA Overexertion from strenuous movement or load, initial encounter
CPT/HCPCS: 81025; 72100; 99284; 96372 ×2; J2270; J1885

== ENCOUNTER → 2023-05-29 | Outpatient (CLI) | payer OTHER ==
[2023-05-29 15:36] LABS: Basophils # (A) 0.08 X 10*3/uL (0.00-0.10); Basophils % (A) 0.8 %; Eosinophils # (A) 0.15 X 10*3/uL (0.04-0.35); Eosinophils % (A) 1.5 %; HCT 44.3 % (37.2-46.3); HGB 14.5 d/dL (12.0-15.0); MCH 27.9 pg (27.0-32.0); MCHC 32.7 d/dL (32.0-37.0); MCV 85.2 FL (80.0-97.0); Monocytes % (A) 3.9 %; NRBC Per 100 WBC 0 X 10*3/uL (0.00-0.01); Neutrophils % (A) 54.5 %; Platelet Count 316 X 10*3/uL (140-440); RDW 14.6 % (11.5-14.5); WBC 10.26 X 10*3/uL (4.50-10.00)
[2023-05-29 16:03] LABS: ALT 8 U/L (8-44); AST 15 U/L (13-35); Albumin 4.4 d/dL (3.8-4.9); Albumin/Globulin Ratio 1.52 Ratio (1.60-3.17); Alkaline Phosphatase 102 U/L (41-126); BUN/Creat Ratio 11.25 Ratio (12.00-20.00); Calcium 9.5 mg/dL (8.7-10.3); Carbon Dioxide 25.5 mmol/L (21.6-31.8); Chloride 103 mmol/L (96-109); Globulin 2.9 d/dL (1.6-3.3); Glucose 117 mg/dL (70-110); Potassium 4.6 mmol/L (3.5-5.5); Sodium 138 mmol/L (135-145); Total Bilirubin 0.2 mg/dL (0.3-1.2); Total Protein 7.3 d/dL (6.2-8.2)
== END | disposition home or self-care (01) ==
LOC: LABWHC1 09:35
PROVIDERS: ATTEND Internal Medicine Gastroenterology
DX: B17.10 Acute hepatitis C without hepatic coma (principal)
CPT/HCPCS: 36415; 80053; 85025; 87522

== ENCOUNTER 2025-01-05 19:14 | Observation (INO) | payer OTHER ==
[2025-01-05 19:20] VITALS: RESP 18
[2025-01-05] MEDS ORDERED: HYDROmorphone 1 MG/ML 1 ML SYRINGE IVP PRN ×2 (19:39→21:29)
[2025-01-05] MEDS ORDERED: NALOXONE 0.4 MG/ML 1 ML VIAL IV PRN ×2 (19:39→21:29)
[2025-01-05] MEDS ORDERED: ONDANSETRON 4 MG/2 ML VIAL IVP PRN ×2 (19:39→21:29)
[2025-01-05] MEDS: cloNIDine 0.3 MG/24HR PATCH TRANSDERM STA (19:44)
[2025-01-05] MEDS: hydrALAZINE HCL 20 MG/ML 1 ML VIAL IVP STA (19:44)
[2025-01-05] MEDS: HYDROmorphone 1 MG/ML 1 ML SYRINGE IVP STA (19:44)
[2025-01-05] MEDS ORDERED: SODIUM CHLORIDE 0.9% 1,000 ML IV SCH (19:45)
--- NOTE | 2025-01-05 19:46 | ED ---
Headache HPI - General Chief Complaint: Headache Stated Complaint: Headache Time Seen by Provider: 01/05/25 19:25 Source: RN notes reviewed, old records reviewed Mode of arrival: ambulatory Limitations: no limitations - History of Present Illness Initial Comments: This is a 34 female to the ER for evaluation of headache dizziness room spinning with persistent nausea vomiting acute retching with no abdominal pain. Denies chance of no recent head injury has no history of head trauma or vertigo herself, no fevers no other complaints MD Complaint: headache, other (Nausea vomiting vertiginous symptoms) -: hour(s) Onset Description: sudden Location: frontal Severity: moderate Severity scale (1-10): 7 Quality: throbbing Consistency: intermittent Improves With: nothing Worsens With: none Associated Symptoms: nausea, vomiting Other Symptoms: other Treatments Prior to Arrival: none - Related Data Home Medications Medication Instructions Recorded Confirmed Cyclobenzaprine [Flexeril] 10 mg PO HS PRN 01/20/14 02/12/18 Ibuprofen [Motrin] 800 mg PO TID PRN 01/20/14 02/12/18 Albuterol Inhaler [Ventolin Hfa 2 puff INHALATION RT-Q6H PRN 07/18/16 02/12/18 Inhaler] Beclomethasone Dipropionate [Qvar 2 puff INHALATION RT-BID 07/18/16 02/12/18 80 mcg] Atorvastatin [Lipitor] 20 mg PO HS 11/01/17 02/12/18 metFORMIN HCL [Glucophage] 500 mg PO BID 11/01/17 02/12/18 Previous Rx's Medication Instructions Recorded predniSONE [Deltasone] 20 mg PO BID #8 tab 02/12/18 Albuterol Inhaler [Ventolin Hfa 1 - 2 puff INHALATION RT-Q6H PRN 08/04/18 Inhaler] #1 inhaler Azithromycin [Zithromax Z-pack (6 250 mg PO DIRECTED #6 tab 08/04/18 tabs)] Ondansetron Odt [Zofran Odt] 4 mg PO Q8HR PRN #12 tab 08/04/18 methylPREDNISolone Dose Pack 4 mg PO DIRECTED #21 package 08/04/18 [Medrol Dose Pack] Ondansetron Odt [Zofran ODT] 4 mg PO Q8HR PRN #20 tab 11/18/18 Pantoprazole Sodium [Protonix] 20 mg PO Q24HR 20 Days #20 11/18/18 tablet. Cyclobenzaprine [Flexeril] 10 mg PO TID PRN 5 Days #15 tab 07/31/19 Acetaminophen-Codeine 300-30mg 1 tab PO Q6H PRN 3 Days #12 tablet 01/10/21 [Tylenol w/codeine #3] Ibuprofen [Motrin] 600 mg PO Q8HR PRN #20 tab 01/10/21 dexAMETHasone [Decadron] 0.75 mg PO DAILY #12 tab 01/10/21 Ibuprofen [Motrin] 600 mg PO Q6HR PRN #20 tab 02/13/21 Amoxic-Pot Clav 875-125Mg 1 tab PO Q12HR #20 tab 07/29/22 [Augmentin 875-125] HYDROcodone/APAP 5-325MG [[place] [facility] 5] 1 each PO Q6HR PRN #12 tab 05/01/23 Lidocaine 5% Patch [Lidoderm] 1 patch TOPICAL DAILY 14 Days #14 05/01/23 patch Naproxen [Naprosyn] 375 mg PO Q12HR 14 Days #28 tablet 05/01/23 Allergies Allergy/AdvReac Type Severity Reaction Status Date / Time doxycycline Allergy Rash/Hives Verified 01/05/25 19:20 Review of Systems ROS Statement: Those systems with pertinent positive or pertinent negative responses have been documented in the HPI. ROS Other: All systems not noted in ROS Statement are negative. Past Medical History Past Medical History: Diabetes Mellitus, Hyperlipidemia Additional Past Medical History / Comment(s): back pain. headaches History of Any Multi-Drug Resistant Organisms: None Reported Past Surgical History: Appendectomy, Tonsillectomy Additional Past Surgical History / Comment(s): laparoscopy x2 Past Psychological History: Anxiety, Depression Smoking Status: Current every day smoker Past Alcohol Use History: Occasional Past Drug Use History: Marijuana - Past Family History Father Family Medical History: Cancer, Coronary Artery Disease (CAD), Diabetes Mellitus, Hyperlipidemia Mother Family Medical History: Cancer, Coronary Artery Disease (CAD), Diabetes Mellitus, Hyperlipidemia General Exam Limitations: no limitations General appearance: alert, in no apparent distress Head exam: Present: atraumatic, normocephalic, normal inspection Eye exam: Present: normal appearance, PERRL, EOMI. Absent: scleral icterus, conjunctival injection, periorbital swelling ENT exam: Present: normal exam, mucous membranes moist Neck exam: Present: normal inspection. Absent: tenderness, meningismus, lymphadenopathy Respiratory exam: Present: normal lung sounds bilaterally. Absent: respiratory distress, wheezes, rales, rhonchi, stridor Cardiovascular Exam: Present: regular rate, normal rhythm, normal heart sounds. Absent: systolic murmur, diastolic murmur, rubs, gallop, clicks GI/Abdominal exam: Present: soft, normal bowel sounds. Absent: distended, tenderness, guarding, rebound, rigid Extremities exam: Present: normal inspection, full ROM, normal capillary refill. Absent: tenderness, pedal edema, joint swelling, calf tenderness Back exam: Present: normal inspection Neurological exam: Present: alert, oriented X3, CN II-XII intact Psychiatric exam: Present: normal affect, normal mood Skin exam: Present: warm, dry, intact, normal color. Absent: rash Course Vital Signs 01/05/25 19:17 Temperature 97.9 F Pulse Rate 89 Respiratory 18 Rate Blood Pressure 127/81 O2 Sat by Pulse 99 Oximetry - Reevaluation(s) Reevaluation #1: 01/05/25 20:35 Medical records reviewed Reevaluation #2: 01/05/25 21:32 Patient still with active nausea vomiting here in the ER Reevaluation #3: 01/05/25 21:32 Patient informed of results questions answered Reevaluation #4: Was pt. sent in by a medical professional or institution (, PA, SPIKE MACHINE FEEDER, urgent care, hospital, or retirement...) When possible be specific @ -no Did you speak to anyone other than the patient for history (EMS, parent, family, police, friend...)? What history was obtained from this source @ -no Did you review nursing and triage notes (agree or disagree)? Why? @ -agree Are old charts reviewed (outside hosp., previous admission, EMS record, old EKG, old radiological studies, urgent care reports/EKG's, retirement records)? Report findings @ -yes Differential Diagnosis (chest pain, altered mental status, abdominal pain women, abdominal pain men, vaginal bleeding, weakness, fever, dyspnea, syncope, headache, dizziness, GI bleed, back pain, seizure, CVA, palpatations, mental health, musculoskeletal)? @ -prior EKG interpreted by me (3pts min.). @ -yes X-rays interpreted by me (1pt min.). @ -yes negative for acute disease CT interpreted by me (1pt min.). @ -no U/S interpreted by me (1pt. min.). @ -no What testing was considered but not performed or refused? (CT, X-rays, U/S, labs)? Why? @ -none What meds were considered but not given or refused? Why? @ -none Did you discuss the management of the patient with other professionals (professionals i.e. , PA, SPIKE MACHINE FEEDER, lab, RT, psych nurse, bilingual social worker, asparagus buncher, teacher, chairman president and chief executive officer, nurse outreach case manager)? Give summary @ -no Was smoking cessation discussed for >3mins.? @ -no Was critical care preformed (if so, how long)? @ -no Were there social determinants of health that impacted care today? How? (Homelessness, low income, unemployed, alcoholism, drug addiction, transportation, low edu. Level, literacy, decrease access to med. care, senior care, rehab)? @ -none Was there de-escalation of care discussed even if they declined (Discuss DNR or withdrawal of care, Hospice)? DNR status @ -no What co-morbidities impacted this encounter? (DM, HTN, Smoking, COPD, CAD, C ancer, CVA, ARF, Chemo, Hep., AIDS, mental health diagnosis, sleep apnea, morbid obesity)? @ -none Was patient admitted / discharged? Hospital course, mention meds given and route, prescriptions, significant lab abnormalities, going to OR and other pertinent info. @ - Undiagnosed new problem with uncertain prognosis? @ -no Drug Therapy requiring intensive monitoring for toxicity (Heparin, Nitro, Insulin, Cardizem)? @ -no Were any procedures done? @ -no Diagnosis/symptom? @ - Acute, or Chronic, or Acute on Chronic? @ -Acute Uncomplicated (without systemic symptoms) or Complicated (systemic symptoms)? @ -Complicated Side effects of treatment? @ -no Exacerbation, Progression, or Severe Exacerbation? @ -exacerbation Poses a threat to life or bodily function? How? (Chest pain, [place], [place], pneumonia, PE, COPD, DKA, ARF, appy, cholecystitis, CVA, Diverticulitis, Homicidal, Suicidal, threat to staff... and all critical care pts) @ -yes Reevaluation #5: Differential Headache: Migraine, tension, cluster, carbon monoxide, central venous thrombosis, pension karma temporal arteritis, acute closure glaucoma, intercranial hemorrhage, mastoiditis, sinusitis, head injury, this is not meant to be an all-inclusive list. - Consultations Consultation #1: Spoke with [facility] who agrees to admit this patient Medical Decision Making - Medical Decision Making 34 female with acute nausea vomiting with headache. Patient does have elevated troponin here in the ER 0.07 significant and persistent nausea vomiting with vertiginous symptoms. Patient will admit for trending of troponin, observation telemetry and symptom control - Lab Data Result diagrams: 01/05/25 19:40 01/05/25 19:40 Lab Results 01/05/25 01/05/25 01/05/25 Range/Units 19:40 19:40 19:40 WBC 13.39 H (4.50-10.00) 10*3/uL RBC 5.25 H (4.10-5.20) 10*6/uL Hgb 14.5 (12.0-15.0) g/dL Hct 42.7 (37.2-46.3) % MCV 81.3 (80.0-97.0) fL MCH 27.6 (27.0-32.0) pg MCHC 34.0 (32.0-37.0) g/dL Plt Count 341 (140-440) 10*3/uL MPV 9.3 L (9.5-12.2) fL Immature Gran % (Auto) 0.3 % Neutrophils % 65.3 % Lymphocytes % 29.4 % Monocytes % 4.1 % Eosinophils % 0.3 % Basophils % 0.6 % Immature Gran # 0.04 (0.00-0.04) 10*3/uL Neutrophils # 8.74 H (1.80-7.70) 10*3/uL Lymphocytes # 3.94 (0.90-5.00) 10*3/uL Monocytes # 0.55 (0.20-1.00) 10*3/uL Eosinophils # 0.04 (0.04-0.35) 10*3/uL Basophils # 0.08 (0.00-0.10) 10*3/uL Sodium 140 (137-145) mmol/L Potassium 4.0 (3.5-5.1) mmol/L Chloride 108 H (98-107) mmol/L Carbon Dioxide 21 L (22-30) mmol/L Anion Gap 11 mmol/L BUN 7 (7-17) mg/dL Creatinine 0.59 (0.52-1.04) mg/dL Est GFR (CKD-EPI)AfAm >90 (>60 ml/min/1.73 sqM) Est GFR (CKD-EPI)NonAf >90 (>60 ml/min/1.73 sqM) Glucose 142 H (74-99) mg/dL Plasma Lactic Acid Oumar 1.6 (0.7-2.0) mmol/L Calcium 9.7 (8.4-10.2) mg/dL Phosphorus 3.4 (2.5-4.5) mg/dL Magnesium 1.7 (1.6-2.3) mg/dL Total Bilirubin 0.8 (0.2-1.3) mg/dL AST 20 (14-36) U/L ALT 13 (4-34) U/L Alkaline Phosphatase 106 (38-126) U/L Troponin I (0.000-0.034) ng/mL Total Protein 7.7 (6.3-8.2) g/dL Albumin 4.3 (3.5-5.0) g/dL Urine Color Urine Appearance (Clear) Urine pH (5.0-8.0) Ur Specific [place] (1.001-1.035) Urine Protein (Negative) Urine Glucose (UA) (Negative) Urine Ketones (Negative) Urine Blood (Negative) Urine Nitrite (Negative) Urine Bilirubin (Negative) Urine Urobilinogen (<2.0) mg/dL Ur Leukocyte Esterase (Negative) Urine HCG, Qual (Not Detectd) 01/05/25 01/05/25 01/05/25 Range/Units 19:40 19:58 19:58 WBC (4.50-10.00) 10*3/uL RBC (4.10-5.20) 10*6/uL Hgb (12.0-15.0) g/dL Hct (37.2-46.3) % MCV (80.0-97.0) fL MCH (27.0-32.0) pg MCHC (32.0-37.0) g/dL Plt Count (140-440) 10*3/uL MPV (9.5-12.2) fL Immature Gran % (Auto) % Neutrophils % % Lymphocytes % % Monocytes % % Eosinophils % % Basophils % % Immature Gran # (0.00-0.04) 10*3/uL Neutrophils # (1.80-7.70) 10*3/uL Lymphocytes # (0.90-5.00) 10*3/uL Monocytes # (0.20-1.00) 10*3/uL Eosinophils # (0.04-0.35) 10*3/uL Basophils # (0.00-0.10) 10*3/uL Sodium (137-145) mmol/L Potassium (3.5-5.1) mmol/L Chloride (98-107) mmol/L Carbon Dioxide (22-30) mmol/L Anion Gap mmol/L BUN (7-17) mg/dL Creatinine (0.52-1.04) mg/dL Est GFR (CKD-EPI)AfAm (>60 ml/min/1.73 sqM) Est GFR (CKD-EPI)NonAf (>60 ml/min/1.73 sqM) Glucose (74-99) mg/dL Plasma Lactic Acid Oumar (0.7-2.0) mmol/L Calcium (8.4-10.2) mg/dL Phosphorus (2.5-4.5) mg/dL Magnesium (1.6-2.3) mg/dL Total Bilirubin (0.2-1.3) mg/dL AST (14-36) U/L ALT (4-34) U/L Alkaline Phosphatase (38-126) U/L Troponin I 0.071 H* (0.000-0.034) ng/mL Total Protein (6.3-8.2) g/dL Albumin (3.5-5.0) g/dL Urine Color Colorless Urine Appearance Clear (Clear) Urine pH 6.5 (5.0-8.0) Ur Specific [place] 1.004 (1.001-1.035) Urine Protein Negative (Negative) Urine Glucose (UA) Negative (Negative) Urine Ketones Negative (Negative) Urine Blood Negative (Negative) Urine Nitrite Negative (Negative) Urine Bilirubin Negative (Negative) Urine Urobilinogen <2.0 (<2.0) mg/dL Ur Leukocyte Esterase Negative (Negative) Urine HCG, Qual Not Detected (Not Detectd) - EKG Data -: EKG Interpreted by Me (EKG is sinus bradycardia 59 MS 133 QRS 89 QTc 446) - Radiology Data Radiology results: report reviewed (CT brain is negative for acute disease), image reviewed Disposition Clinical Impression: Nausea & vomiting, NSTEMI (non-ST elevated myocardial infarction), Headache Disposition: ADMITTED IP TO THIS HOSP Condition: Fair Is patient prescribed a controlled substance at d/c from ED?: No Referrals: None,Stated [Primary Care Provider] - 1-2 days Time of Disposition: 21:30
[2025-01-05] MEDS: diphenhydrAMINE 50 MG/ML 1 ML VIAL IVP STA (19:49)
[2025-01-05] MEDS: PROCHLORPERAZINE INJ 10 MG/2 ML VIAL IVP STA (19:50)
[2025-01-05] MEDS: SODIUM CHLORIDE 0.9% 1,000 ML IV ONE (19:50)
[2025-01-05 20:03] LABS: Basophils # (A) 0.08 10*3/uL (0.00-0.10); Basophils % (A) 0.6 %; Eosinophils # (A) 0.04 10*3/uL (0.04-0.35); Eosinophils % (A) 0.3 %; HCT 42.7 % (37.2-46.3); HGB 14.5 g/dL (12.0-15.0); Lymphocytes # (A) 3.94 10*3/uL (0.90-5.00); Lymphocytes % (A) 29.4 %; MCH 27.6 pg (27.0-32.0); MCV 81.3 fL (80.0-97.0); Mean Platelet Volume 9.3 fL (9.5-12.2); Monocytes # (A) 0.55 10*3/uL (0.20-1.00); Monocytes % (A) 4.1 %; Neutrophils # (A) 8.74 10*3/uL (1.80-7.70); Neutrophils % (A) 65.3 %; Platelet Count 341 10*3/uL (140-440); RBC 5.25 10*6/uL (4.10-5.20); WBC 13.39 10*3/uL (4.50-10.00)
[2025-01-05 20:06] LABS: Appearance,Urine Clear (Clear); Bilirubin,Urine Negative (Negative); Blood,Urine Negative (Negative); Color,Urine Colorless; Glucose,Urine (UA) Negative (Negative); Ketones,Urine Negative (Negative); Leukocyte Esterase,Urine Negative (Negative); Nitrite,Urine Negative (Negative); PH, Urine 6.5 (5.0-8.0); Protein,Urine Negative (Negative); Specific Gravity,Urine 1.004 (1.001-1.035); Urobilinogen,Urine <2.0 mg/dL (<2.0)
[2025-01-05 20:23] LABS: ALT 13 U/L (4-34); AST 20 U/L (14-36); African American GFR (CKD) >90 (>60 ml/min/1.73 sqM); Albumin 4.3 g/dL (3.5-5.0); Alkaline Phosphatase 106 U/L (38-126); Anion Gap 11 mmol/L; Blood Urea Nitrogen 7 mg/dL (7-17); Calcium 9.7 mg/dL (8.4-10.2); Carbon Dioxide 21 mmol/L (22-30); Chloride 108 mmol/L (98-107); Glucose 142 mg/dL (74-99); Magnesium 1.7 mg/dL (1.6-2.3); Non-African American GFR(CKD) >90 (>60 ml/min/1.73 sqM); Phosphorus 3.4 mg/dL (2.5-4.5); Sodium 140 mmol/L (137-145); Total Bilirubin 0.8 mg/dL (0.2-1.3); Total Protein 7.7 g/dL (6.3-8.2)
--- NOTE | 2025-01-05 20:50 | CT ---
EXAMINATION TYPE: CT brain wo con DATE OF EXAM: 01/05/2025 8:45 PM COMPARISON: None. CLINICAL INDICATION: Female, 34 years old with history of weakness, Headache x 2 days with vomiting. States that she just feels "off". TECHNIQUE: Brain: Axial CT images of the brain were obtained with coronal and sagittal reformats created and rev iewed. Contrast used: None. Oral contrast used: None. CT DLP: 1096.4 mGycm, Automated exposure control for dose reduction was used. FINDINGS: Brain: Extra-axial spaces: No abnormal extra-axial fluid collections. Ventricular system: Within normal limits Cerebral parenchyma: No acute intraparenchymal hemorrhage or mass effect. The rodriguez-white junction is well differentiated. Cerebellum: Unremarkable. Mass effect: No evidence of midline shift. Intracranial vasculature: unremarkable Soft tissues: Normal. Calvarium/osseous structures: No depressed skull fracture. Paranasal sinuses and mastoid air cells: Mild scattered paranasal sinus disease. Visualized orbits: Orbital contents are intact. IMPRESSION: No acute intracranial process. [facility], , 01/05/2025 8:47 PM
[2025-01-05] MEDS: PANTOPRAZOLE 40 MG/10 ML VIAL IV SCH (21:37)
[2025-01-05] MEDS: SODIUM CHLORIDE 0.9% 1,000 ML IV SCH (21:39)
[2025-01-06 04:36] VITALS: TEMP 98.1
[2025-01-06 06:05] LABS: HCT 39.4 % (37.2-46.3); HGB 13.2 g/dL (12.0-15.0); MCH 27.5 pg (27.0-32.0); MCHC 33.5 g/dL (32.0-37.0); MCV 82.1 fL (80.0-97.0); Mean Platelet Volume 9.9 fL (9.5-12.2); Platelet Count 316 10*3/uL (140-440); RDW 14.4 % (11.5-14.5); WBC 11.71 10*3/uL (4.50-10.00)
[2025-01-06 06:20] LABS: ALT 11 U/L (4-34); AST 16 U/L (14-36); African American GFR (CKD) >90 (>60 ml/min/1.73 sqM); Albumin 3.5 g/dL (3.5-5.0); Alkaline Phosphatase 85 U/L (38-126); Anion Gap 8 mmol/L; Blood Urea Nitrogen 6 mg/dL (7-17); Calcium 9.1 mg/dL (8.4-10.2); Carbon Dioxide 22 mmol/L (22-30); Chloride 108 mmol/L (98-107); Glucose 110 mg/dL (74-99); Magnesium 1.8 mg/dL (1.6-2.3); Non-African American GFR(CKD) >90 (>60 ml/min/1.73 sqM); Phosphorus 3.4 mg/dL (2.5-4.5); Potassium 4.1 mmol/L (3.5-5.1); Sodium 138 mmol/L (137-145); Total Bilirubin 0.6 mg/dL (0.2-1.3); Total Protein 6.5 g/dL (6.3-8.2)
[2025-01-06 08:20] LABS: Monocytes # (M) 0.47 k/uL (0-1.0); Neutrophils # (M) 5.74 k/uL (1.3-7.7); Neutrophils % (M) 49 %; Nucleated Red Blood Cells 0 /100 WBC (0-0); Total Cells Counted 100
--- NOTE | 2025-01-06 09:05 | P.CRDCN ---
History of Present Illness Consult date: 01/06/25 History of present illness: HISTORY OF PRESENTING ILLNESS: Patient is a 34-year-old female with past medical history of dyslipidemia and type 2 diabetes 1 to 2 pack smoker presented to the hospital because of slurred speech for last 3 to 4 days along with dizziness and inability to walk. On initial workup she was noted to have elevated troponin of 0.071. With a kidney function of BUN 7 creatinine 0.6 her D-dimer was also elevated. Admission EKG: EKG showed sinus bradycardia rate 59, nonspecific T wave changes with biphasic T waves in 1 and aVL, Nonspecific T wave inversions in lead Imaging: CT brain did not show any acute intracranial process REVIEW OF SYSTEMS: 14 point review of system is negative except what is mentioned above in HPI. PHYSICAL EXAMINATION: Neck: Brisk carotid upstroke, no jugular venous distention. Lungs: Clear to auscultation. Wheezing in bilateral lung jo Heart: Regular rate and rhythm, S1-S2, , no murmur or rub. Abdomen: Soft nontender, positive bowel sounds. Extremities: No edema, intact distal pulses. Neuro: Alert, oritented. Detailed neuro exam was not performed. ASSESSMENT: # Slurred speech and dizziness, likely acute CVA # Elevated troponin, most likely from possible CVA. Cannot rule out NSTEMI at this time # Type 2 diabetes # Dyslipidemia # 1 to 2 pack smoker # Family history of heart disease PLAN: Trend troponins, obtain echocardiogram, obtain CT angio PE protocol Recommend neurology consultation to rule out CVA Aspirin 81 mg, Lipitor 40 mg Further recommendations to follow Patient is very rude and is wanting to leave [place] however I have advised her not to do so I recommended that she should be admitted to the hospital for further testing because of concerns of CVA and possible [place] Past Medical History Past Medical History: Diabetes Mellitus, Hyperlipidemia Additional Past Medical History / Comment(s): back pain. headaches History of Any Multi-Drug Resistant Organisms: None Reported Past Surgical History: Appendectomy, Tonsillectomy Additional Past Surgical History / Comment(s): laparoscopy x2 Past Psychological History: Anxiety, Depression Smoking Status: Current every day smoker Past Alcohol Use History: Occasional Past Drug Use History: Marijuana - Past Family History Father Family Medical History: Cancer, Coronary Artery Disease (CAD), Diabetes Mellitus, Hyperlipidemia Mother Family Medical History: Cancer, Coronary Artery Disease (CAD), Diabetes Rosaurai yashira, Hyperlipidemia Medications and Allergies Home Medications Medication Instructions Recorded Confirmed Type Albuterol Inhaler [Ventolin Hfa 2 puff INHALATION RT-Q6H PRN 07/18/16 01/06/25 History Inhaler] metFORMIN HCL [Glucophage] 500 mg PO BID 11/01/17 01/06/25 History Budesonide-Formot 160-4.5 Mcg 2 puff INHALATION RT-BID 01/06/25 01/06/25 History [Symbicort 160-4.5 Mcg Inhaler] Rosuvastatin [Crestor] 20 mg PO HS 01/06/25 01/06/25 History Allergies Allergy/AdvReac Type Severity Reaction Status Date / Time doxycycline Allergy Rash/Hives Verified 01/06/25 07:51 Physical Exam Vitals: Vital Signs Temp Pulse Resp BP Pulse Ox 01/06/25 06:45 71 18 113/56 97 01/06/25 04:29 98.1 F 53 L 18 119/96 98 01/06/25 02:00 60 18 122/86 97 01/05/25 21:30 98.2 F 61 18 145/88 97 01/05/25 19:17 97.9 F 89 18 127/81 99 Intake and Output 01/05/25 01/06/25 01/06/25 22:59 06:59 14:59 Other: Weight 79.379 kg Results 01/06/25 04:19 01/06/25 04:19 Cardiac Enzymes 01/05/25 01/05/25 01/06/25 Range/Units 19:40 19:40 04:19 AST 20 16 (14-36) U/L Troponin I 0.071 H* (0.000-0.034) ng/mL CBC 01/05/25 01/06/25 Range/Units 19:40 04:19 WBC 13.39 H 11.71 H (4.50-10.00) 10*3/uL RBC 5.25 H 4.80 (4.10-5.20) 10*6/uL Hgb 14.5 13.2 (12.0-15.0) g/dL Hct 42.7 39.4 (37.2-46.3) % Plt Count 341 316 (140-440) 10*3/uL Comprehensive Metabolic Panel 01/05/25 01/06/25 Range/Units 19:40 04:19 Sodium 140 138 (137-145) mmol/L Potassium 4.0 4.1 (3.5-5.1) mmol/L Chloride 108 H 108 H (98-107) mmol/L Carbon Dioxide 21 L 22 (22-30) mmol/L BUN 7 6 L (7-17) mg/dL Creatinine 0.59 0.68 (0.52-1.04) mg/dL Glucose 142 H 110 H (74-99) mg/dL Calcium 9.7 9.1 (8.4-10.2) mg/dL AST 20 16 (14-36) U/L ALT 13 11 (4-34) U/L Alkaline Phosphatase 106 85 (38-126) U/L Total Protein 7.7 6.5 (6.3-8.2) g/dL Albumin 4.3 3.5 (3.5-5.0) g/dL Current Medications Generic Name Dose Route Start Last Admin Trade Name Freq PRN Reason Stop Dose Admin Hydromorphone HCl 1 mg 01/05/25 21:29 Hydromorphone 1 Mg/Ml 1 Ml Syringe IVP Q3HR PRN Severe Pain (Scale 7 to 10) Sodium Chloride 1,000 mls @ 130 mls/hr 01/05/25 21:30 01/06/25 06:41 Saline 0.9% IV 130 mls/hr .[id number] PRINCESS Administration Naloxone HCl 0.2 mg 01/05/25 21:29 Naloxone 0.4 Mg/Ml 1 Ml Vial IV Q2M PRN Opioid Reversal Ondansetron HCl 4 mg 01/05/25 21:29 Ondansetron 4 Mg/2 Ml Vial IVP Q8HR PRN Nausea And Vomiting Pantoprazole Sodium 40 mg 01/05/25 21:30 01/05/25 21:37 Pantoprazole 40 Mg/10 Ml Vial IV 40 mg DAILY PRINCESS Administration Intake and Output 01/05/25 01/06/25 01/06/25 22:59 06:59 14:59 Other: Weight 79.379 kg 01/06/25 04:19 01/06/25 04:19
[2025-01-06 09:13] VITALS: BP 129/70; PULSE 58
[2025-01-06] MEDS ORDERED: ASPIRIN 81 MG PO SCH (09:15)
[2025-01-06] MEDS ORDERED: ATORVASTATIN 40 MG TAB PO SCH (21:00)
== END 2025-01-06 09:13 | disposition left against medical advice (07) ==
LOC: EC 19:14 → 3SCARD 21:29
PROVIDERS: ADMIT Hospitalist; ATTEND Hospitalist
DX: R51.9 Headache, unspecified (principal); R47.81 Slurred speech; R42 Dizziness and giddiness; R79.89 Other specified abnormal findings of blood chemistry; F17.210 Nicotine dependence, cigarettes, uncomplicated; E11.9 Type 2 diabetes mellitus without complications; E78.5 Hyperlipidemia, unspecified; Z82.49 Family history of ischemic heart disease and other diseases of the circulatory system; Z79.899 Other long term (current) drug therapy; Z79.51 Long term (current) use of inhaled steroids; Z79.84 Long term (current) use of oral hypoglycemic drugs; Z53.29 Procedure and treatment not carried out because of patient's decision for other reasons; Z88.1 Allergy status to other antibiotic agents
CPT/HCPCS: 96374; 96375; 99285; 36415; 93005; 82552; 85379; 80053 ×2; 83605; 83735 ×2; 84100 ×2; 84484 ×2; 85025 ×2; 81003; 81025; 82550; 70450; G0378 ×2; J1200; J0780; J2470